=== PATIENT | male | born 1950 | race Two or more races ===

== ENCOUNTER 2024-07-13 17:51 | Inpatient (IN) | payer MEDICAID, SELFPAY ==
[2024-07-13 18:20] VITALS: BP 211/113; BP 212/85; PULSE 81; RESP 18; TEMP 37.2; O2SAT 95; BMI 28.7
--- NOTE | 2024-07-13 18:28 | XR_ITS ---
Examination: CT abdomen and pelvis without contrast. Coronal 3-D reconstructions. Sagittal 2-D reconstructions. Date and time of exam:July 13, 2024 1850 hrs. Indications: Right-sided abdominal pain and vomiting beginning 3 days ago CTDI: vol (mGy): 7.84 DLP: (mGycm): 413 Technique: Axial images of the abdomen have been obtained, 3 mm slice thickness Intravenous contrast material has not been administered. Low dose protocols were performed. One or more of the following dose reduction techniques were used; automated exposure control, adjustment of the mA and/or KV according to patient size, use of iterative reconstruction technique. Findings: Diffuse fatty infiltration throughout the liver Gallstones Gallbladder wall appears mildly thickened Pericholecystic inflammatory change and possible edema around the head of the pancreas No definite extrahepatic biliary tract dilatation Renal arterial calcifications, no hydronephrosis Pericecal inflammatory change with apparent inflammation also involving the terminal ileum No bowel obstruction Contracted urinary bladder No significant prostatomegaly Advanced disc narrowing L4-L5 Impression: Cholelithiasis, suspicious for cholecystitis Suspicious for pancreatitis, consider MRCP follow-up Significant inflammatory change about the right colon and terminal ileal segment Differential would include Crohn's disease Partial visualization of the appendix axial image 67 which does not appear enlarged, but the patient be clinically correlated
--- NOTE | 2024-07-13 18:29 | PD.EDRME ---
Rapid Medical Screening Exam E Arrival date/time: 07/13/24 17:51 73-year-old male with past medical history of hypertension not on medication presents emergency department complaining of diffuse abdominal pain with vomiting that is been ongoing for 3 days. Chief Complaint: Abdominal Pain Time Seen by Provider: 07/13/24 18:04 Vital signs: Vital Signs Temperature 98.9 F 07/13/24 18:20 Pulse Rate 81 07/13/24 18:20 Respiratory Rate 18 07/13/24 18:20 Blood Pressure 211/113 H 07/13/24 18:20 Pulse Oximetry (%) 95 07/13/24 18:20 Oxygen Delivery Method Room Air 07/13/24 18:20 Vital signs reviewed by provider: Yes
[2024-07-13 18:56] LABS: Basophils # (Auto) 0.1 Thou/mm3 (0.0-0.2); Basophils % (Auto) 0 % (0-2.5); Eosinophils # (Auto) 0.1 Thou/mm3 (0.0-0.5); Eosinophils % (Auto) 0 % (0-10); Hematocrit 46.4 % (41.0-53.0); Hemoglobin 17.2 g/dL (13.5-16.0); Immature Granulocytes % (Auto) 1 % (0-0); Immature Granulocytes Auto 0.21 Thou/mm3 (0.00-0.00); Lymphocytes # (Auto) 1.9 Thou/mm3 (1.0-4.8); Lymphocytes % (Auto) 8 % (10-50); Mean Corpuscular HGB Conc 37.1 g/dl (31.0-37.0); Mean Corpuscular Hemoglobin 29.6 pg (25.0-35.0); Mean Corpuscular Volume 80 fL (80-100); Monocytes % (Auto) 4 % (0-12); Neutrophils # (Auto) 20.8 Thou/mm3 (1.8-7.7); Neutrophils % (Auto) 86 % (37-80); Nucleated Red Blood Cell % 0 /100 WBC (0); Platelet Count 198 Thou/mm3 (140-440); RDW Standard Deviation 34.7 fL (35.1-43.9); Red Blood Count 5.82 Miln/mm3 (4.50-5.90)
[2024-07-13 19:21] VITALS: BP 192/96; PULSE 81
[2024-07-13] MEDS: hydrALAZINE HCL 25 MG TABLET PO (19:21)
[2024-07-13] MEDS: ONDANSETRON ODT 4 MG TABRAP PO (19:22)
[2024-07-13] MEDS: KETOROLAC INJ 60 MG/2 ML VIAL 30 MG IM (19:23)
[2024-07-13 19:27] LABS: Alanine Aminotransferase 74 U/L (10-49); Albumin, Serum 4.8 gm/dL (3.4-4.8); Albumin/Globulin Ratio 1.5 (1.2-2.2); Alkaline Phosphatase 90 U/L (46-116); Anion Gap 12 (7-16); Aspartate Amino Transferase 47 U/L (0-34); BUN/Creatinine Ratio 13 Ratio (12-20); Bilirubin,Total 3.8 mg/dL (0.3-1.2); Blood Urea Nitrogen 10 mg/dL (9-23); Calcium 9.5 mg/dL (8.3-10.6); Calcium (Corrected) 9.5 mg/dL (8.5-10.1); Carbon Dioxide 20.8 mMol/L (20.0-31.0); Chloride 97 mMol/L (98-107); Creatinine (Component) 0.8 mg/dL (0.6-1.3); Estimated Creatinine Clearance 73.9 mL/min (>60); Globulin 3.2 gm/dL (2.3-3.5); Glucose 266 mg/dL (74-106); Lipase 30 U/L (12-53); Osmolality,Calculated 268 (275-295); Potassium 3.6 mMol/L (3.4-5.1); Sodium 130 mMol/L (136-145); eGFR > 60 See Note
[2024-07-13 19:30] LABS: Lactate (Lactic Acid) 2.7 mMol/L (0.4-2.0)
[2024-07-13 20:36] LABS: Procalcitonin 0.53 ng/ml (0.0-0.49)
[2024-07-13 22:21] VITALS: BP 162/98; PULSE 79; RESP 17; TEMP 36.6; O2SAT 96
[2024-07-13 22:28] LABS: Reflex Lactate? Y
--- NOTE | 2024-07-13 22:40 | EDNOTE_ITS ---
ED Abdominal Pain RME/HPI General Chief Complaint: Abdominal Pain Stated complaint: R) ABD PAIN, VOMITING, UNABLE TO EAT X 3 DAYS Time seen by provider: 07/13/24 18:04 Arrival date/time: 07/13/24 17:51 RME / HPI RME / HPI narrative: 07/13/24 17:51 73-year-old male with past medical history of hypertension not on medication presents emergency department complaining of diffuse abdominal pain with vomiting that is been ongoing for [address] days[address] -------- Dr. Baxter?s Main ED Evaluation: 73yo male with a history of alcohol abuse presents to the ED for a chief complaint of epigastric and RUQ pain x yesterday. Patient's son states the patient started having abdominal pain yesterday, reporting it's been progressively getting worse, so he came in for evaluation. He currently rates his pain an 8 out of 10 in severity. He denies any fever, chills, vomiting or any other associated symptoms. Patient drinks alcohol daily. Patient states he experienced similar symptoms 15 years ago and was told he drinks alcohol too much. No known allergies. Related Data Allergies Allergy/AdvReac Type Severity Reaction Status Date / Time No Known Allergies Allergy Verified 07/13/24 17:54 Review of Systems Review of Systems Systems Reviewed: All systems reviewed, normal except as documented Past Medical History Past Medical History CARDIAC: Negative Congestive Heart Failure RESPIRATORY: Negative Chronic Obstructive Pulmonary Disease (COPD) GENITOURINARY: Negative Renal Disease ENDOCRINE: Negative Diabetes Mellitus Type 1 or Diabetes Mellitus Type 2 Social History SMOKING STATUS: Never smoker ED Exam Narrative Physical exam: GENERAL APPEARANCE: alert and oriented x 4, well-developed, well-nourished, no acute distress VITALS: All vitals were reviewed and the pulse ox is 96% on room air, which is normal according to my interpretation. HEENT: Normocephalic, atraumatic; pupils equal, round, reactive to light; EOMI; mucous membranes pink, moist; oropharynx clear NECK: Supple LUNGS: CTABL; no wheezes, no rales, no rhonchi HEART: Regular rate, regular rhythm; normal S1, S2; no murmurs ABDOMEN: non distended; normal BS; soft, mild RLQ tenderness, pfjxqklp-[id number] tenderness at the RUQ, voluntary guarding, positive Martinez sign, no rebound; no masses, no organomegaly, no hernia BACK: no CVA tenderness EXTREMITIES: atraumatic; no edema NEUROLOGIC: awake; alert and oriented x4; cranial nerves II-XII grossly intact; no focal sensory or motor deficits PSYCHIATRIC: appropriate mood and affect SKIN: warm, dry, normal color; no rashes Course Course Course Narrative: The patient was placed in ED observation care at 07/13/24 at 2255 hours. The patient was placed in ED observation care because of pending MRCP. The patients past medical history, social history, and family history were reviewed. 0600: Care signed out to Dr. Bartholomew (emergency physician). Past medical, surgical, social and family history reviewed. Vitals and home medications reviewed. Results and treatment plan discussed. They will assume the care of the patient at this time and will follow the patient, pending MRCP. At this time, observation has ended. Quality Measures none Orders Category Date Time Status Cylinder Press Feeder Q4H START 00 Care 07/13/24 22:53 Active Continuous Pulse Oximetry NOW Care 07/13/24 22:53 Completed MRI Screening NOW Care 07/14/24 03:[address] abdomen pelvis wo con Stat Exams 07/13/24 18:28 Completed MR MRCP Stat Exams 07/14/24 Ordered XR chest 1V portable Stat Exams 07/13/24 22:55 Completed Blood Culture (Lab) Stat Lab 07/13/24 20:01 Received CBC Stat Lab 07/13/24 18:34 Completed CMP [Comprehensive Metabolic Panel] Stat Lab 07/13/24 18:34 Completed Lactic Acid [Lactate (Lactic Acid)] Stat Lab 07/13/24 18:34 Completed Lactic Acid, 3 HR Stat Lab 07/13/24 22:54 Completed Lipase Stat Lab 07/13/24 18:34 Completed Procalcitonin Stat Lab 07/13/24 18:34 Completed Urinalysis, C/S if Indicated Stat Lab 07/13/24 23:33 Completed Urine Culture Stat Lab 07/13/24 23:33 Received Acetaminophen Ivpb [Ofirmev Inj] Med 07/13/24 22:55 Discontinued 1,000 mg in 100 ml IV X1 HYDROmorphone INJ [Dilaudid Inj] Med 07/13/24 23:00 Active 0.5 mg IVP PRN Ketorolac Inj [Toradol Inj] Med 07/13/24 18:28 Discontinued 30 mg IM X1 ONE Ondansetron Inj [Zofran Inj] Med 07/13/24 22:52 Discontinued 4 mg IV X1 ONE Ondansetron Odt [Zofran Odt] Med 07/13/24 18:28 Discontinued 4 mg PO X1 ONE Piper/Tazo Inj [Zosyn Inj] 4.5 gm Med 07/13/24 22:52 Discontinued Sodium Chloride 0.9% (Pop) [NS 0.9% mini bag] 100 ml IV X1 Sodium Chloride 0.9% 1000 ml [Ns] 1,000 ml Med 07/13/24 22:53 Discontinued IV 999 mls/hr hydrALAZINE HCL [Apresoline] Med 07/13/24 18:29 Discontinued 25 mg PO X1 ONE Vital Signs Vital signs: Vital Signs Temperature 98.9 F 07/13/24 18:20 Pulse Rate 81 07/13/24 18:20 Respiratory Rate 18 07/13/24 18:20 Blood Pressure 211/113 H 07/13/24 18:20 Pulse Oximetry (%) 95 07/13/24 18:20 Oxygen Delivery Method Room Air 07/13/24 18:20 Abdominal Pain MDM MDM Narrative MDM Narrative:: Scribe Attestation: 07/13/24 Merline Plascencia am scribing for and in the presence of Dr. Baxter. Patient data External records reviewed:: [facility] previous records (Per chart review, patient has no previous ED visits or admissions to this facility.) Clinical information provided by:: patient Social determinants that could affect healthcare access:: alcohol use Patient has the following chronic illnesses:: none How is presenting disease/condition affected by chronic disease/condition?: no chronic disease Evaluation data The following diagnostics were reviewed and interpreted by me:: lab results and radiology exam(s) Lab and/or radiology exams considered but not ordered:: none Interpretation Summary: WBC count is elevated at 24.0 with a left shift, Sodium is low at 130, Glucose is 266, Lactic Acid is elevated at 2.7, Total Bilirubin is elevated at 3.8, AST and ALT are elevated, Lipase is normal, Procalcitonin is slightly elevated at 0.53, according to my interpretation. [facility] Report Signed Patient: CADEN FERREIRA Med. Record#: [id number] Birthdate: 1950 Age/Sex: 73 / M Location: [facility] Attending Dr: Ordering Physician: [place] Bey (JOSH)Juan Date of Service: 07/13/24 Procedure(s): CT abdomen pelvis wo con Accession Number(s): [id number] cc: Ibrahima Mclean MD; NO PRIMARY/FAMILY,PHYSICIAN; India Bey ([employer]EARCH SCIENTIST),Juan MORENO~ Examination: CT abdomen and pelvis without contrast. Coronal 3-D reconstructions. Sagittal 2-D reconstructions. Date and time of exam:July 13, 2024 1850 hrs. Indications: Right-sided abdominal pain and vomiting beginning 3 days ago CTDI: vol (mGy): 7.84 DLP: (mGycm): 413 Technique: Axial images of the abdomen have been obtained, 3 mm slice thickness Intravenous contrast material has not been administered. Low dose protocols were performed. One or more of the following dose reduction techniques were used; automated exposure control, adjustment of the mA and/or KV according to patient size, use of iterative reconstruction technique. Findings: Diffuse fatty infiltration throughout the liver Gallstones Gallbladder wall appears mildly thickened Pericholecystic inflammatory change and possible edema around the head of the pancreas No definite extrahepatic biliary tract dilatation Renal arterial calcifications, no hydronephrosis Pericecal inflammatory change with apparent inflammation also involving the terminal ileum No bowel obstruction Contracted urinary bladder No significant prostatomegaly Advanced disc narrowing L4-L5 Impression: Cholelithiasis, suspicious for cholecystitis Suspicious for pancreatitis, consider MRCP follow-up Significant inflammatory change about the right colon and terminal ileal segment Differential would include Crohn's disease Partial visualization of the appendix axial image 67 which does not appear enlarged, but the patient be clinically correlated Dictated By: Ibrahima Mclean MD Signed By: <Electronically signed by Ibrahima Mclean MD in OV> 07/13/24 193 Medications / Prescriptions Medications or Prescriptions considered but not ordered:: none Medication administrations:: Medication Administration History Hydromorphone HCl (Hydromorphone Inj 2 Mg/Ml Vial) 0.5 mg IVP PRN BRIAN Stop: 07/18/24 23:01 Discontinued Medications Hydralazine HCl (Hydralazine Hcl 25 Mg Tablet) 25 mg PO X1 ONE Stop: 07/13/24 18:30 Last Admin: 07/13/24 19:21 Dose: 25 mg Documented By: MC Piperacillin Sod/Tazobactam (Sod 4.5 gm/ Sodium Chloride) 100 mls @ 200 mls/hr IV X1 ONE Stop: 07/13/24 23:21 Last Infusion: 07/14/24 00:10 Dose: Infused Documented By: Admin: 07/13/24 23:40 Dose: 200 mls/hr Documented By: CCT Sodium Chloride (Ns) 1,000 mls @ 999 mls/hr IV .Q1H1M ONE Stop: 07/13/24 23:53 Last Infusion: 07/14/24 00:40 Dose: Infused Documented By: Admin: 07/13/24 23:41 Dose: 999 mls/hr Documented By: CCT Acetaminophen (Ofirmev Inj) 1,000 mg in 100 mls @ 250 mls/hr IV X1 ONE Stop: 07/13/24 23:18 Last Infusion: 07/14/24 00:16 Dose: Infused Documented By: Admin: 07/13/24 23:28 Dose: 250 mls/hr Documented By: CCT Ketorolac Tromethamine (Ketorolac Inj 60 Mg/2 Ml Vial) 30 mg IM X1 ONE Stop: 07/13/24 18:29 Last Admin: 07/13/24 19:23 Dose: 30 mg Documented By: MC Ondansetron HCl (Ondansetron Odt 4 Mg Tabrap) 4 mg PO X1 ONE; Protocol Stop: 07/13/24 18:29 Last Admin: 07/13/24 19:22 Dose: 4 mg Documented By: MC Ondansetron HCl (Ondansetron Inj 2 Mg/Ml Inj 2 Ml) 4 mg IV X1 ONE; Protocol Stop: 07/13/24 22:53 Last Admin: 07/14/24 00:18 Dose: Not Given Documented By: CCT Non-Admin Reason: Discontinued see above Consultations Consultation(s) initiated? (list below): No Diagnosis Differential diagnosis abdominal pain: pancreatitis and other (cholecystitis, cholelithiasis, choledocolithiasis, gallstone pancreatitis, gallstone ileus) Most likely diagnosis given after review of the tests above:: final dx pending at sign out Admission Indicated Admission indicated?: not indicated Admission Request Was there a request for admission?: No Disposition Plan Disposition Plan: other (specify) (Signed out to Dr. Bartholomew at 0600 pending [facility].) Discharge Plan Plan Disposition Comment: Stable at signout. Prescriptions/Referrals Referrals: No Primary/Family,Physician [Primary Care Provider] - In 1 week Problem List Clinical Impression: Abdominal pain, Total bilirubin, elevated Patient/Caregiver Discharge Instructions Print Language: Jordanian Stand Alone Forms: [facility] Award Info., Patient Portal Info Letter
[2024-07-13 22:53] VITALS: PULSE 76
--- NOTE | 2024-07-13 22:55 | XR_ITS ---
Examination: AP chest single view Technique one AP portable upright chest single view Exam date and time: July 13, 2024 1106 hrs. Indications: Abdominal pain vomiting and fever beginning 3 days ago with coughing Findings: Poor definition lateral portion left hemidiaphragm with mild opacity lateral left base Normal heart size Right lung clear No pulmonary edema Moderate osteopenia Impression: Suspicious for early pneumonia lateral left base
[2024-07-13 23:04] LABS: Lactic Acid, 3 HR 1.7 mMol/L (0.4-2.0)
--- NOTE | 2024-07-13 23:20 | PC.NURSE ---
Discussed plan of care with pt, son at bedside to interpret. Aware he needs MRCP, however, MRI not available until morning. Pt verbalized understanding of plan of care.
[2024-07-13] MEDS: ACETAMINOPHEN IVPB 1,000 MG/100 ML VIAL 250 MG IV (23:28)
[2024-07-13] MEDS: PIPER/TAZO INJ 4.5 GM in SODIUM CHLORIDE 0.9% (POP) 100 ML IV (23:40)
[2024-07-13] MEDS: SODIUM CHLORIDE 0.9% 1000 ML 1,000 ML 999 ML IV (23:41)
[2024-07-13 23:42] LABS: Collection Type, Urine Clean Catch
[2024-07-13 23:52] LABS: Bacteria,Urine 1+; Bilirubin,Urine Negative (Negative); Blood,Urine Negative (Negative); Clarity,Urine Turbid (Clear/Hazy); Color,Urine Orange (Lt Yel-Yel); Culture Indicated,Urine Yes; Glucose, Urine 4+ (Negative); Hyaline Casts,Urine 1 /hpf (0-1); Ketones,Urine Negative (Negative); Leukocyte Esterase,Urine Negative (Negative); Nitrite,Urine Negative (Negative); PH,Urine 5.5 (5.0-7.0); Protein,Urine 1+ (Neg - Trace); RBC,Urine 6 /hpf (0-3); Specific Gravity,Urine 1.021 (1.001-1.035); Squamous Epithelial Cell,Urine < 1 /hpf (0-5); Urobilinogen,Urine Negative mg/dL (0.0-1.0); WBC,Urine 3 /hpf (0-5)
[2024-07-14] VITALS (21 sets, daily range): BP systolic 132–176; BP diastolic 68–93; PULSE 64–81; RESP 12–20; TEMP 36.3–37.1; O2SAT 93–98; BMI 28.7
--- NOTE | 2024-07-14 | XR_ITS ---
MRI abdomen, without contrast. MRCP Date and time of exam: July 14, 2024 0722 hrs. Indications: Alcohol abuse history, upper abdominal pain beginning 3 days ago, cholecystitis, suspicious for pancreatitis, inflammatory change about the right colon and terminal ileum on CT abdomen pelvis July 13, 2024 1850 hrs. Technique: Multiple axial and coronal images of the abdomen have been obtained with the Siemens 1.5T MRI scanner. Images obtained included T1 weighted transverse images, T2-weighted transverse images, T2-weighted transverse images fat-suppressed, T2 weighted haste fat suppressed transverse images, T1 weighted images, in and out of phase images, T2-weighted coronal images, breath hold, T2 weighted haze coronal images as well as T2 weighted coronal thick slab images, MRCP. Findings: Liver irregular in contour Distended gallbladder with gallbladder wall edema and pericholecystic edema Common hepatic duct common bile duct 3 to 4 mm no stones Edema around the pancreas, no dilated pancreatic duct Spleen is not enlarged Edema around the right colon and terminal ileum Trace free fluid throughout the abdomen Impression: Cirrhosis versus primary hepatocellular disease Acute cholecystitis, no common hepatic or common bile duct stones Acute pancreatitis Edema about the right colon and terminal ileum, clinical correlation advised
--- NOTE | 2024-07-14 04:30 | PC.NURSE ---
Pt resting with eyes closed. Respirations are even and unlabored. No s/s of acute distress noted. Son at bedside. Call light within reach. Plan of care ongoing.
--- NOTE | 2024-07-14 07:19 | PD.EDADDENDU ---
Emergency Room Addendum <Myrtle Chun - Last Filed: 07/14/24 08:36> Addendum Narrative: 0600: Care assumed from Dr. Baxter, the previous shift emergency physician. Past medical, surgical, social and family history reviewed. Vitals and home medications reviewed. I will assume the care of the patient at this time, pending MRCP and final disposition. Please refer to the emergency department record for history and examination from initial visit.? Physical exam by me shows patient under no acute distress at this time. <Ruddy Bartholomew MD - Last Filed: 07/14/24 08:36> Addendum Narrative: I took over the care from Dr. Baxter at 6 AM on 07/14/2024, see his notes for complete H&P and ED course. I reviewed all diagnostic test results. At this point, diagnoses include acute cholecystitis. I discussed the case with our surgeon on-call, Dr. Metcalf, and our hospitalist. About the presentation and exam and diagnostics and treatments here. And need of further care in the hospital. Will accept the patient. Ruddy Bartholomew MD
[2024-07-14] MEDS: HYDROmorphone INJ 2 MG/ML VIAL 0.5 MG IVP ×2 (08:31→10:11)
--- NOTE | 2024-07-14 09:40 | PC.SS ---
Initial assessment: this is 73 year old male who presents from home. Patient is Hebrew speaking. Patient appeared alert and oriented to person, place and situation. Patient confirmed demographic information. Patient lives at home with his son, Marisa Rodarte. Patient assigned his son Marisa as his emergency contact. Patient reports being independent with ADL's. Patient denies the use of DME in the home. Patient informs he does not follow up with primary care and has not been seen medically in years. Patient would like to return home upon discharge. Patient's son able to assist with transportation needs. Community resources provided at this time. D/c plan: home Next of kin: son, Marisa Rodarte
[2024-07-14] MEDS: SODIUM CHLORIDE 0.9% 1000 ML 1,000 ML 100 ML IV ×2 (10:00→20:44)
[2024-07-14] MEDS: PIPER/TAZO INJ 3.375 GM in SODIUM CHLORIDE 0.9% (Popper) 50 ML IV ×2 (10:01→22:03)
[2024-07-14] MEDS: ONDANSETRON INJ 2 MG/ML INJ 2 ML 4 MG IV (10:10)
--- NOTE | 2024-07-14 10:15 | PC.NURSE ---
Received verbal order from Dr. Sanchez for 0.5mg Dilaudid IV for pain control.
[2024-07-14 10:26] LABS: Basophils # (Auto) 0.1 Thou/mm3 (0.0-0.2); Basophils % (Auto) 0 % (0-2.5); Eosinophils % (Auto) 0 % (0-10); Hematocrit 45.8 % (41.0-53.0); Hemoglobin 16.5 g/dL (13.5-16.0); Immature Granulocytes % (Auto) 1 % (0-0); Lymphocytes # (Auto) 1.2 Thou/mm3 (1.0-4.8); Lymphocytes % (Auto) 6 % (10-50); Mean Corpuscular Hemoglobin 29.2 pg (25.0-35.0); Mean Corpuscular Volume 81 fL (80-100); Monocytes # (Auto) 0.8 Thou/mm3 (0.0-0.8); Monocytes % (Auto) 4 % (0-12); Neutrophils # (Auto) 16.1 Thou/mm3 (1.8-7.7); Neutrophils % (Auto) 88 % (37-80); Nucleated Red Blood Cell % 0 /100 WBC (0); Platelet Count 162 Thou/mm3 (140-440); RDW Standard Deviation 36.9 fL (35.1-43.9); Red Blood Count 5.65 Miln/mm3 (4.50-5.90); White Blood Count 18.3 Thou/mm3 (3.8-10.6)
--- NOTE | 2024-07-14 11:22 | ESCONSULT_ITS ---
HPI Consult details Consult date: 07/14/24 Reason for consultation narrative: Abdominal pain with nausea and vomit History of present illness: 73-year-old male without past medical history who has not seen a physician for many years presented to the emergency department with acute onset of abdominal pain. His pain started 3 days ago in the epigastric and right upper quadrant. His pain has been radiating to his back and was associated with nausea and vomiting. He denies fever, chills, jaundice or discoloration of urine or stool. He denies having similar symptoms in the past. He has not been able to eat or tolerate any food. Review of Systems Constitutional Constitutional: Denies chills and Denies fever(s) Cardiovascular Cardiovascular: Denies chest pain Respiratory Respiratory: Denies cough Gastrointestinal Gastrointestinal: Reports abdominal pain, Reports nausea and Reports vomiting Hematologic/Lymphatic Hematologic/Lymphatic: Denies easy bleeding and Denies easy bruising Past Medical History Surgical History OTHER SURGICAL HX: No surgeries in the past Social History SMOKING STATUS: Former smoker SUBSTANCE USE: does not use ALCOHOL: Current Meds Home Medications and Allergies Allergies Allergy/AdvReac Type Severity Reaction Status Date / Time No Known Allergies Allergy Verified 07/13/24 17:54 Exam Vital Signs Temp Pulse Resp BP Pulse Ox O2 Del Method 98.4 F 77 17 175/89 H 95 Room Air 07/14/24 10:14 07/14/24 10:14 07/14/24 10:14 07/14/24 10:14 07/14/24 10:14 07/14/24 10:14 Constitutional Constitutional: no acute distress Routine Abdominal Exam Abdominal: Present soft, normoactive bowel sounds and tenderness (Epigastric and right upper quadrant tenderness to palpation with guarding, positive Martinez sign); Absent distended Results Results: Laboratory Laboratory results: results reviewed Results: Imaging Imaging narrative: CT scan of abdomen and pelvis, MRCP images reviewed, radiologist interpretation noted Assessment & Plan Problem List (1) Calculus of gallbladder with acute cholecystitis without obstruction: Status: Acute Plan Will take patient to the operating room for laparoscopic possible open cholecystectomy. Risks include but not limited to infection, bleeding, injury to bowel, liver, stomach, bile duct, retained stone, bile leak, abdominal sepsis and or abdominal abscess, need for further procedure and or operation, pneumonia and blood clot discussed with the patient via director life sales and his son. Benefits and alternatives explained to them, all their questions answered, they agreed and consented to proceed with the operation.
--- NOTE | 2024-07-14 11:42 | ESHP_ITS ---
<Statement entered by Luke Belcher MD - 07/14/24 15:27> Patient was seen and examined at the bedside. Patient came with right lower quadrant pain and was found to have cholecystitis on CT abdominal imaging. Chest x-ray showed left base pneumonia. Patient received 1 L bolus of fluids and Zosyn in the ED. CT imaging was also significant for cirrhosis and acute pancreatitis with edema on the right colon. Surgeon, Dr Metcalf was consulted who performed surgery today. Will continue with IV fluid resuscitation and IV antibiotic therapy. White count was elevated with hemoconcentration with hemoglobin 17.2. Lactic acid was within normal limits. Kidney functions remained stable. Blood sugars were elevated therefore insulin sliding scale was added. Will follow-up on surgery recommendations. Adequate pain management was added. All labs and orders were reviewed. I saw and examined the patient, and I agree with current management stated by Dr Zara MD,PGY1. Plan of care was discussed with the attending physician and resident physician. Disclaimer: Despite multiple revisions, due to the dictation software being used, the document bellow may not be free of grammatical errors including phonetic/typographic errors. However, this does not deter from our commitment to providing health care in the patient's best interest in mind. Dr. Simi MD, PGY 2 Documentation for date of: 07/14/24 HPI History of Present Illness History of present illness: Clemente Rodarte is a 73-year-old male with a past medical history of hypertension (not on medications) who presented to the ED on 07/13 with abdominal pain. Pain started on Saturday and patient describes it as constant, 8/10 in severity, and in right upper quadrant. Also endorses epigastric pain but it does not radiate to the back. Associated nausea and nonbloody emesis with decreased p.o. intake but denies fever, chills, or change in bowel habits. In ED, BP 211/113, afebrile, and other vital signs stable. Labs significant for leukocytosis of 24, normal platelets, sodium 130, glucose 266, lactic acid 2.7 (down trended to 1.7), AST 47, ALT 74, T. bili 3.8, normal ALP, lipase normal, Pro-Mike 0.53. On CT A/P, cholelithiasis (suspicious for cholecystitis), possible pancreatitis, significant inflammatory change in right colon and terminal ileus. MRCP showed cirrhosis, acute cholecystitis (no stones in common hepatic or common bile duct), acute pancreatitis, edema in right colon and terminal ileum. CXR showed possible early pneumonia left lung base. Admitted for acute cholecystitis and general surgery consulted who will take patient to the OR. PMHx: Hypertension Medications: None Allergies: None SHx: Drinks 6-8 beers per day, no smoking or illicit drug use PSHx: No previous surgeries Review of Systems Review of Systems Systems Reviewed: All systems reviewed, normal except as documented Exam Vital Signs Temp Pulse Resp BP Pulse Ox O2 Del Method 98.4 F 77 17 175/89 H 95 Room Air 07/14/24 10:14 07/14/24 10:14 07/14/24 10:14 07/14/24 10:14 07/14/24 10:14 07/14/24 10:14 Narrative Exam General: AOx3, no acute distress, able to speak full sentences HEENT: NC/AT, mucous membranes moist, bilateral sclera anicteric Cardiovascular: regular rate and rhythm, S1/S2 present, no murmurs appreciated Pulmonary: clear to auscultation bilaterally, no rales/rhonchi/wheezes Abdominal: Tenderness in epigastrium and right upper quadrant, soft, non- distended Musculoskeletal: normal ROM, no peripheral edema Skin: warm and dry, intact, no rashes Neuro: CN II-XII intact, no focal deficits Results: Labs 07/15/24 04:48 07/15/24 04:48 Labs: Short CBC 07/13/24 07/14/24 Range/Units 18:34 09:57 WBC 24.0 H 18.3 H D (3.8-10.6) Thou/mm3 Hgb 17.2 H 16.5 H (13.5-16.0) g/dL Hct 46.4 45.8 (41.0-53.0) % Plt Count 198 162 D (140-440) Thou/mm3 BMP 07/13/24 18:34 Sodium 130 L Potassium 3.6 Chloride 97 L Carbon Dioxide 20.8 BUN 10 Creatinine 0.8 Glucose 266 H Calcium 9.5 Liver Function 07/13/24 Range/Units 18:34 Total Bilirubin 3.8 H (0.3-1.2) mg/dL AST 47 H (0-34) U/L ALT 74 H (10-49) U/L Alkaline Phosphatase 90 (46-116) U/L Albumin 4.8 (3.4-4.8) gm/dL Urine 07/13/24 Range/Units 23:33 Urine Color Ada A (Lt Yel-Yel) Urine Clarity Turbid A (Clear/Hazy) Urine pH 5.5 (5.0-7.0) Ur Specific [place] 1.021 (1.001-1.035) Urine Protein 1+ A (Neg - Trace) Urine Glucose (UA) 4+ A (Negative) Quality Measures Quality Measures none Advance care planning discussed with:: other Medications Home Medications and Allergies Allergies Allergy/AdvReac Type Severity Reaction Status Date / Time No Known Allergies Allergy Verified 07/13/24 17:54 Visit Medications Acetaminophen (Acetaminophen 325 Mg Tablet) 650 mg PO Q6H PRN PRN Reason: PAIN OR FEVER > 100.4 Stop: 08/13/24 09:27 Dextrose (Dextrose 50%-Water Inj 50 Ml Syringe) 25 ml IV Q15MIN PRN PRN Reason: BG 50-70 responsive npo pt Stop: 08/13/24 10:53 Dextrose (Dextrose 50%-Water Inj 50 Ml Syringe) 50 ml IV Q15MIN PRN PRN Reason: BG <50 OR BG <70 & pt unresponsive Stop: 08/13/24 10:53 Fentanyl Citrate (Fentanyl Cit Inj 50 Mcg/Ml Amp 2ml) 25 mcg IV Q5M PRN PRN Reason: PAIN SCALE 1-3 (mild Stop: 07/14/24 13:08 Glucagon (Glucagon Inj 1 Mg Vial) 1 mg IM Q15MIN PRN PRN Reason: BG <70, and no IV access Heparin Sodium (Porcine) (Heparin Sod Inj 5000 Unit/Ml Vial) 5,000 unit SC Q12HR BRIAN Stop: 07/28/24 20:59 Hydromorphone HCl (Hydromorphone Inj 2 Mg/Ml Vial) 0.5 mg IVP Q4H PRN PRN Reason: Pain Hydromorphone HCl (Hydromorphone Inj 2 Mg/Ml Vial) 0.4 mg IV Q5M PRN PRN Reason: PAIN SCALE 7-10 (Severe Stop: 07/14/24 13:09 Sodium Chloride (Ns) 1,000 mls @ 100 mls/hr IV .Q10H [facility] Stop: 08/13/24 09:29 Last Admin: 07/14/24 10:00 Dose: 100 mls/hr Piperacillin Sod/Tazobactam (Sod 3.375 gm/ Sodium Chloride) 50 mls @ 12.5 mls/hr IV Q8HR [facility]; Protocol Stop: 07/21/24 13:59 Acetaminophen (Ofirmev Inj) 1,000 mg in 100 mls @ 250 mls/hr IV Q6H BRIAN Stop: 07/15/24 05:32 Insulin Human Lispro (Insulin Lispro (Admelog) 1 Unit/0.01 Ml Unit) 0 unit SC Q6HR [facility]; Protocol Stop: 08/13/24 10:59 Morphine Sulfate (Morphine Sulf Inj 10 Mg/Ml Vial) 3 mg IV Q5M PRN PRN Reason: PAIN SCALE 4-6 (Moderate Stop: 07/14/24 13:09 Ondansetron HCl (Ondansetron Inj 2 Mg/Ml Inj 2 Ml) 4 mg IV Q6H PRN; Protocol PRN Reason: NAUSEA OR VOMITING Stop: 08/13/24 09:27 Last Admin: 07/14/24 10:10 Dose: 4 mg Pantoprazole Sodium (Pantoprazole Inj 40 Mg Vial) 40 mg IVP QDAY [facility] Stop: 08/14/24 08:59 Discontinued Medications Hydralazine HCl (Hydralazine Hcl 25 Mg Tablet) 25 mg PO X1 ONE Stop: 07/13/24 18:30 Last Admin: 07/13/24 19:21 Dose: 25 mg Hydromorphone HCl (Hydromorphone Inj 2 Mg/Ml Vial) 0.5 mg IVP PRN [facility] Stop: 07/18/24 23:01 Last Admin: 07/14/24 08:31 Dose: 0.5 mg Hydromorphone HCl (Hydromorphone Inj 2 Mg/Ml Vial) 0.5 mg IVP X1 ONE Stop: 07/14/24 10:04 Last Admin: 07/14/24 10:11 Dose: 0.5 mg Piperacillin Sod/Tazobactam (Sod 4.5 gm/ Sodium Chloride) 100 mls @ 200 mls/hr IV X1 ONE Stop: 07/13/24 23:21 Last Infusion: 07/14/24 00:10 Dose: Infused Sodium Chloride (Ns) 1,000 mls @ 999 mls/hr IV .Q1H1M ONE Stop: 07/13/24 23:53 Last Infusion: 07/14/24 00:40 Dose: Infused Acetaminophen (Ofirmev Inj) 1,000 mg in 100 mls @ 250 mls/hr IV X1 ONE Stop: 07/13/24 23:18 Last Infusion: 07/14/24 00:16 Dose: Infused Piperacillin Sod/Tazobactam (Sod 3.375 gm/ Sodium Chloride) 50 mls @ 100 mls/hr IV X1 ONE Stop: 07/14/24 09:05 Last Admin: 07/14/24 10:01 Dose: 100 mls/hr Ketorolac Tromethamine (Ketorolac Inj 60 Mg/2 Ml Vial) 30 mg IM X1 ONE Stop: 07/13/24 18:29 Last Admin: 07/13/24 19:23 Dose: 30 mg Ondansetron HCl (Ondansetron Odt 4 Mg Tabrap) 4 mg PO X1 ONE; Protocol Stop: 07/13/24 18:29 Last Admin: 07/13/24 19:22 Dose: 4 mg Ondansetron HCl (Ondansetron Inj 2 Mg/Ml Inj 2 Ml) 4 mg IV X1 ONE; Protocol Stop: 07/13/24 22:53 Last Admin: 07/14/24 00:18 Dose: Not Given Ondansetron HCl (Ondansetron Inj 2 Mg/Ml Inj 2 Ml) 4 mg IV X1 ONE Stop: 07/14/24 11:09 Assessment & Plan Plan Clemente Rodarte is a 73-year-old male with a past medical history of hypertension (not on medications) who presented to the ED on 07/13 with abdominal pain. Pain started on Saturday and patient describes it as constant, 8/10 in severity, and in right upper quadrant. Also endorses epigastric pain but it does not radiate to the back. Associated nausea and nonbloody emesis with decreased p.o. intake but denies fever, chills, or change in bowel habits. Imaging showed acute cholecystitis and admitted for management of same and general surgery consulted who will take patient to the OR. #Acute calculus cholecystitis #Cholelithiasis #Leukocytosis Presents with right upper quadrant and epigastric pain for 3 days. No fever or chills but does endorse nausea vomiting. Vital signs stable with leukocytosis, thus not septic. CT A/P showed concerns for cholecystitis that was confirmed on MRCP. Imaging also showed signs of pancreatitis, however lipase negative and pain does not radiate to back. Total bilirubin initially 3.8 and up trended to 4.0, ALP WNL, AST and ALT mildly elevated at 59 and 76, respectively. ? General Surgery consulted, plans to take to OR for laparoscopic versus possible open cholecystectomy ? N.p.o. ? Zosyn 3.375 g IV every 8 hours ? NS at 100 cc/h ? Zofran for nausea ? Dilaudid 0.5 mg IV every 4 hours as needed for pain ? Follow-up blood cultures #Alcohol dependence Endorses drinking 6-8 beers per day and last drink was on Saturday. No tremors on exam, denies anxiety, agitation, or headaches and alert and orientated x 3. ? Referral to social services director ? Loop Drier Operator referral placed ? CIWA protocol ? Multivitamins #Hypertensive urgency #Primary hypertension Not prescribed any home antihypertensives. ? As needed hydralazine ? Will consider starting antihypertensives after procedure and no longer n.p.o. #? Inflammatory bowel disease, Crohn's versus UC Denies diarrhea or constipation or bloody bowel movements, arthritic pain, eye pain/uveitis, oral lesions, or skin rashes. CT showed inflammatory changes of right colon and terminal ileum. ? Follow-up fecal calprotectin Hospital management: Disposition: admitted for cholecystitis and plans for cholecystectomy Fluids: NS at 100 cc/h Diet: N.p.o., pending procedure Lines: PIV DVT prophylaxis: Heparin SC twice daily GI prophylaxis: Pantoprazole CODE STATUS: full code ----- Plan discussed with attending physician Dr. Nancie heart senior resident physician Dr. Simi Zuñiga MD PGY-1 Internal Medicine Attending Provider Attestation/Addendum I, Luzma Miguel DO, attest that I was physically present for the [place] portions of the service and evaluated the patient with the resident and I reviewed and discussed the case with the resident and agree with the resident's findings and plans of care as documented above Patient is a 73-year-old male with past medical history of alcohol abuse and hypertension who presented to the ED due to worsening abdominal pain for the past 3 days. Son is at bedside. Patient states that he has been unable to tolerate any p.o. intake due to worsening pain, worse in his right upper quadrant. Son states that he has been estranged from his father for the past 24 years and concerned as his father had reached out to him due to his pain and discomfort. CT abdomen pelvis was done showing evidence of acute Merna cystitis on acute pancreatitis. MRCP was also done due to mildly elevated bilirubin of 3.8 and showed evidence of cirrhosis, acute cholecystitis and pancreatitis. There is also edema in the right colon and terminal ileum. Will start patient on IV fluids and pain control as needed. Surgeon was consulted from ED and admitted to [facility]. Patient underwent open cholecystectomy. A AKUA drain was noted with some sanguinous output. Dressing across right upper quadrant was clean dry and intact. Patient is some pain on palpation. Patient was found to have a gangrenous gallbladder with multiple stones. Will continue with IV Zosyn at this time and pain control. Will provide patient with resources for substance rehabilitation by social services director and evaluation by dietitian as requested by the son. Patient is noted to have hyperglycemia of 301 on presentation. Will obtain A1c. Suspect that patient may have underlying hypertension, but has not seen a doctor for 15 years. Will start patient on lisinopril for blood pressure control. Will also place patient on CIWA protocol due to concern for alcohol withdrawal. Patient reports consumption of alcohol daily, last drink on Saturday.
[2024-07-14 12:06] LABS: Alanine Aminotransferase 76 U/L (10-49); Albumin, Serum 4.2 gm/dL (3.4-4.8); Albumin/Globulin Ratio 1.4 (1.2-2.2); Alkaline Phosphatase 80 U/L (46-116); Anion Gap 10 (7-16); Aspartate Amino Transferase 59 U/L (0-34); BUN/Creatinine Ratio 20 Ratio (12-20); Blood Urea Nitrogen 14 mg/dL (9-23); Calcium 9.2 mg/dL (8.3-10.6); Calcium (Corrected) 9.2 mg/dL (8.5-10.1); Carbon Dioxide 23.1 mMol/L (20.0-31.0); Cardiac Risk Estimate 2.6 RATIO (4.0-6.7); Chloride 101 mMol/L (98-107); Cholesterol 153 mg/dL (132-200); Creatinine (Component) 0.7 mg/dL (0.6-1.3); Estimated Creatinine Clearance 84.5 mL/min (>60); Globulin 2.9 gm/dL (2.3-3.5); Glucose 218 mg/dL (74-106); HDL Cholesterol 60 mg/dL (40-60); LDL Cholesterol,Calculated 76 mg/dL (0-130); Osmolality,Calculated 275 (275-295); Potassium 3.2 mMol/L (3.4-5.1); Sodium 134 mMol/L (136-145); Total Protein 7.1 gm/dL (5.7-8.2); Triglycerides 84 mg/dL (30-150); eGFR > 60 See Note
--- NOTE | 2024-07-14 13:00 | SUR.PHASEI ---
1300 Patient arrived to recovery resting comfortably in [facility], drowsy and able to arouse with verbal prompting, on oxygen 6L via oxy mask, breathing unlabored, vital signs stable, denies pain, dressing intact to abdomen; maicol, gauze, medipore tape x2 ports, no bleeding noted, AKUA drain 19F in place with sutures, drain sponge, gauze, medipore tape with serosanguineous fluid in drain, lung sounds clear upon auscultation, bilateral radial pulses present when palpated, report received from Tor HUDSON and Dr. Cummings.
--- NOTE | 2024-07-14 13:01 | ESOP_ITS ---
Date of Procedure 07/14/24 Pre Op Diagnosis Cholelithiasis with acute cholecystitis Post Op Diagnosis Cholelithiasis with gangrenous cholecystitis Procedure Attempted laparoscopic, converted to open cholecystectomy Findings Gangrenous gallbladder with multiple gallstones and significant pericholecystic inflammation Procedure Description Patient was brought into the operating room in supine position. After administration of general endotracheal anesthesia abdomen was prepped and draped in standard surgical manner. A Veress needle was inserted through the umbilicus and pneumoperitoneum was obtained up to 15 mmHg. The Veress needle was then removed, a 5 mm infraumbilical incision was made and the 5mm trocar was inserted. Laparoscopic camera was placed. Under direct visualization a laparoscopic camera a 10 mm trocar was placed in subxiphoid and two 5 mm trocars placed in right upper quadrant. The right upper quadrant was inspected, there was significant amount of inflammatory reaction noted. The omentum was adherent in the inferior surface of the gallbladder and liver. I was unable to free the omental adhesions from the inferior surface of the liver and gallbladder. The gallbladder appeared to be gangrenous in appearance. At this point I elected to convert the procedure to open. Subxiphoid incision was connected to the medial right upper quadrant incision by making a subcostal incision. Instruments and trocars removed and pneumoperitoneum was evacuated. Dissection was deepened into soft tissue and anterior abdominal fascia was divided. The rectus muscle was excised. Posterior abdominal fascia and peritoneum were opened. A Bookwalter retractor was placed for adequate exposure. Patient was noted to waldron ve significant amount of inflammatory reaction and adhesions of omentum into the inferior aspect of gallbladder and the liver. Adhesions were bluntly dissected and divided and the omentum was retracted caudally. The gallbladder was gangrenous. The gallbladder was from the liver and top-down fashion. Upon reaching the infundibulum of the gallbladder the junction of gallbladder and cystic duct was clearly visualized. The cystic duct was ligated with 0 silk tie. Cystic artery was identified and divided between 2 clips proximally and 1 distally. The gallbladder was then removed. The area was copiously and thoroughly washed and irrigated, all the fluids were suctioned and the suction fluid returned clear. Hemostasis was adequate and satisfactory. There was no evidence of bile leak or bleeding. A 19 [place] round Handy-Phan drain was placed at the gallbladder fossa and the drain was brought out of the lateral 5 mm trocar site incision. The drain was secured with 2-0 nylon suture. Peritoneum and posterior abdominal fascia were closed with running 0 PDS. The wound was copiously and thoroughly washed and irrigated. Anterior abdominal fascia was closed with running 0 PDS and the incisions were closed with maicol. Appropriate sterile dressings applied. Instruments, needles and sponge counts were all reported to be correct X2. Patient tolerated the procedure well, was extubated, breathing spontaneously and without difficulty and was transferred to postanesthesia care in stable condition. Anesthesia GETA and local Drains AKUA drain x 1 Pathology / specimen Other (Gallbladder and contents) Estimated Blood Loss 50 Condition Stable Disposition PACU Surgeon Aldair Metcalf MD Surgical Staff Operation Date: 07/14/24 11:45 Case Staff Anesthesiologist: Keegan Cummings RN First Assistant: Zhanna De
--- NOTE | 2024-07-14 13:15 | SUR.PHASEI ---
1300 Covid antigen in-house completed 1315 Results to Covid antigen [id number]
--- NOTE | 2024-07-14 14:10 | SUR.PHASEI ---
1402 Report given to Verito HUDSON, patient meets discharge criteria from recovery, awake and talking with staff, on oxygen 3L via oxy mask, breathing unlabored, vital signs stable, patient states he has a little pain, unable to rate, declines pain medication stating, I'm good , dressing intact; no bleeding noted, AKUA drain in place with serosanguineous fluid present, denies nausea. 1405 Patients son at bedside with patient. 1410 Patient transported via rney to room 350 without incident, BOOM SUPERVISOR arrived to assist with transferring patient from rney to bed, patient resting comfortably in bed with call light in reach and his son at bedside when this field underwriter left patients room.
[2024-07-14] MEDS: ACETAMINOPHEN IVPB 1,000 MG/100 ML VIAL 250 MG IV ×2 (15:39→20:52)
[2024-07-14] MEDS: INSULIN LISPRO (AdmeLOG) 1 UNIT/0.01 ML UNIT SC ×2 (16:01→19:20)
[2024-07-14] MEDS: hydrALAZINE INJ 20 MG/ML VIAL 10 MG IV (16:18)
--- NOTE | 2024-07-14 18:55 | PC.NURSE ---
checked patient blood sugar is 449, ordered glucose lab draw and notified Dr. Randall. states he will put in orders for sliding scale.
[2024-07-14 19:33] LABS: Glucose 456 mg/dL (74-106)
[2024-07-14] MEDS: INSULIN GLARGINE (Lantus) 5 UNIT/0.05 ML (PER 5 UNITS) 22 UNIT SC (20:35)
[2024-07-14] MEDS: DOCUSATE SOD 100 MG CAPSULE PO (20:46)
[2024-07-14] MEDS: FOLIC ACID 1 MG TABLET PO (20:47)
[2024-07-14] MEDS: THIAMINE 100 MG TABLET PO (20:47)
[2024-07-14] MEDS: POTASSIUM CHL 10 mEq IVPB 10 MEQ/100 ML BAG 100 MEQ IV ×3 (20:47→22:59)
[2024-07-14 21:13] LABS: Carbon Dioxide 18.4 mMol/L (20.0-31.0); Chloride 102 mMol/L (98-107); Potassium 3.8 mMol/L (3.4-5.1); Sodium 131 mMol/L (136-145)
[2024-07-14 21:14] LABS: Alanine Aminotransferase 116 U/L (10-49); Albumin, Serum 3.8 gm/dL (3.4-4.8); Albumin/Globulin Ratio 1.4 (1.2-2.2); Alkaline Phosphatase 76 U/L (46-116); Anion Gap 11 (7-16); Aspartate Amino Transferase 117 U/L (0-34); BUN/Creatinine Ratio 17 Ratio (12-20); Bilirubin,Total 2.8 mg/dL (0.3-1.2); Blood Urea Nitrogen 19 mg/dL (9-23); Calcium 8.8 mg/dL (8.3-10.6); Creatinine (Component) 1.1 mg/dL (0.6-1.3); Estimated Creatinine Clearance 53.7 mL/min (>60); Globulin 2.8 gm/dL (2.3-3.5); Osmolality,Calculated 284 (275-295); Total Protein 6.6 gm/dL (5.7-8.2); eGFR > 60 See Note
[2024-07-14] MEDS: INSULIN LISPRO (AdmeLOG) 1 UNIT/0.01 ML UNIT 10 UNIT SC (23:18)
[2024-07-15] VITALS (8 sets, daily range): BP systolic 149–164; BP diastolic 67–111; PULSE 63–126; RESP 14–97; TEMP 36.2–36.9; O2SAT 93–94; BMI 28.7
[2024-07-15] MEDS: POTASSIUM CHL 10 mEq IVPB 10 MEQ/100 ML BAG 100 MEQ IV
[2024-07-15] MEDS: INSULIN LISPRO (AdmeLOG) 1 UNIT/0.01 ML UNIT SC ×4 (01:02→16:40)
[2024-07-15] MEDS: HYDROmorphone INJ 2 MG/ML VIAL 1 MG IVP ×2 (01:08→07:33)
--- NOTE | 2024-07-15 03:10 | PC.NURSE ---
[facility] downtime from [phone].
[2024-07-15] MEDS: ACETAMINOPHEN IVPB 1,000 MG/100 ML VIAL 250 MG IV ×2 (03:42→12:02)
[2024-07-15 05:26] LABS: Basophils % (Auto) 0 % (0-2.5); Eosinophils % (Auto) 0 % (0-10); Hematocrit 39.1 % (41.0-53.0); Hemoglobin 14.1 g/dL (13.5-16.0); Immature Granulocytes % (Auto) 1 % (0-0); Immature Granulocytes Auto 0.13 Thou/mm3 (0.00-0.00); Lymphocytes % (Auto) 6 % (10-50); Mean Corpuscular HGB Conc 36.1 g/dl (31.0-37.0); Mean Corpuscular Hemoglobin 29.7 pg (25.0-35.0); Mean Corpuscular Volume 83 fL (80-100); Monocytes # (Auto) 0.6 Thou/mm3 (0.0-0.8); Monocytes % (Auto) 3 % (0-12); Neutrophils # (Auto) 15.9 Thou/mm3 (1.8-7.7); Neutrophils % (Auto) 91 % (37-80); Nucleated Red Blood Cell % 0 /100 WBC (0); Platelet Count 157 Thou/mm3 (140-440); RDW Standard Deviation 38.4 fL (35.1-43.9); Red Blood Count 4.74 Miln/mm3 (4.50-5.90); White Blood Count 17.6 Thou/mm3 (3.8-10.6)
[2024-07-15 05:46] LABS: INR 1.1 (0.9-1.3); Partial Thromboplastin Time 30.3 Seconds (22.0-36.0); Prothrombin Time 11.9 Seconds (9.0-12.2)
[2024-07-15 05:55] LABS: Glucose Estimated Average 177 mg/dL (80-131); Hemoglobin A1C 7.8 % Hgb (4.8-6.0)
[2024-07-15] MEDS: PIPER/TAZO INJ 3.375 GM in SODIUM CHLORIDE 0.9% (Popper) 50 ML IV ×3 (06:08→21:38)
[2024-07-15 06:31] LABS: Alanine Aminotransferase 85 U/L (10-49); Albumin, Serum 3.7 gm/dL (3.4-4.8); Albumin/Globulin Ratio 1.4 (1.2-2.2); Alkaline Phosphatase 76 U/L (46-116); Anion Gap 9 (7-16); Aspartate Amino Transferase 81 U/L (0-34); BUN/Creatinine Ratio 21 Ratio (12-20); Bilirubin,Total 1.9 mg/dL (0.3-1.2); Blood Urea Nitrogen 19 mg/dL (9-23); Calcium 8.8 mg/dL (8.3-10.6); Carbon Dioxide 21.3 mMol/L (20.0-31.0); Chloride 105 mMol/L (98-107); Creatinine (Component) 0.9 mg/dL (0.6-1.3); Estimated Creatinine Clearance 65.7 mL/min (>60); Globulin 2.6 gm/dL (2.3-3.5); Glucose 245 mg/dL (74-106); Magnesium 2.1 mg/dL (1.6-2.6); Osmolality,Calculated 280 (275-295); Phosphorous 1.5 mg/dL (2.4-5.1); Potassium 3.9 mMol/L (3.4-5.1); Sodium 135 mMol/L (136-145); Thyroid Stimulating Hormone 1.85 uIU/mL (0.55-4.78); Total Protein 6.3 gm/dL (5.7-8.2); eGFR > 60 See Note
[2024-07-15] MEDS: SODIUM CHLORIDE 0.9% 1000 ML 1,000 ML 100 ML IV ×2 (07:19→18:00)
[2024-07-15] MEDS: PANTOPRAZOLE INJ 40 MG VIAL IVP (08:13)
--- NOTE | 2024-07-15 08:29 | PC.NURSE ---
Reassess pain unrelieved. Educated patient to ambulate.
[2024-07-15] MEDS: NAPH,KPH MBDB 1 PACKET (1.5 GM) 2 PACKET PO (10:08)
[2024-07-15] MEDS: Lisinopril 2.5 MG TABLET 10 MG PO (10:09)
[2024-07-15] MEDS: FOLIC ACID 1 MG TABLET PO ×2 (10:11→20:21)
[2024-07-15] MEDS: THIAMINE 100 MG TABLET PO ×2 (10:11→20:21)
--- NOTE | 2024-07-15 11:42 | PD.SURPROG ---
Documentation for date of: 07/15/24 Subjective Subjective Narrative: Patient is seen and examined. His pain is improving Exam Vital Signs Temp Pulse Resp BP Pulse Ox O2 Del Method O2 Flow Rate 98.2 F 126 H 14 156/111 H 93 L Room Air 2 07/15/24 07:50 07/15/24 10:09 07/15/24 07:50 07/15/24 10:09 07/15/24 07:50 07/15/24 07:50 07/14/24 20:00 Constitutional Constitutional: no acute distress Routine Abdominal Exam Comments: Abdomen is soft and nondistended. Incision with dressings clean, dry and intact. AKUA drain in place with minimal serosanguineous drainage Assessment & Plan Assessment Additional comments: Postop day #1 status post open cholecystectomy for gangrenous cholecystitis Plan Continue IV antibiotics. Patient is advised to increase ambulation Procedures Procedures Attempted laparoscopic, converted to open cholecystectomy
[2024-07-15] MEDS: INSULIN LISPRO (AdmeLOG) 1 UNIT/0.01 ML UNIT 2 UNIT SC ×2 (12:09→16:39)
--- NOTE | 2024-07-15 14:35 | PC.SS ---
Rounding note: postop day one of status post open cholecystectomy, receiving IV antibiotics.
--- NOTE | 2024-07-15 14:41 | ESPR_ITS ---
<Statement entered by Luke Belcher MD - 07/15/24 15:16> Patient was seen and examined at the bedside. Patient reported that this pain has improved and patient's son was present at bedside. We reported that we are trying to address his blood sugars and blood pressure as he is not currently on any medication. Lisinopril 10 mg Po started for blood pressure management. Insulin sliding scale and Lantus was adjusted for type 2 diabetes. Blood cultures are growing negative for 24 hours. Patient is postop day 1 after laparoscopic cholecystectomy and will be managed for pain and will follow with surgery recommendations. Neutra-Phos was given. White count slightly improved. Blood pressure was slightly improved than yesterday. All labs and orders were reviewed. I saw and examined the patient, and I agree with current management stated by Dr Zara MD,PGY1. Plan of care was discussed with the attending physician and resident physician. Disclaimer: Despite multiple revisions, due to the dictation software being used, the document bellow may not be free of grammatical errors including phonetic/typographic errors. However, this does not deter from our commitment to providing health care in the patient's best interest in mind. Dr. Simi MD, PGY 2 Documentation for date of: 07/15/24 Subjective Subjective Interval history: Clemente Rodarte is a 73-year-old male with a past medical history of hypertension (not on medications) who presented to the ED on 07/13 with abdominal pain. Pain started on Saturday and patient describes it as constant, 8/10 in severity, and in right upper quadrant. Also endorses epigastric pain but it does not radiate to the back. Associated nausea and nonbloody emesis with decreased p.o. intake but denies fever, chills, or change in bowel habits. In ED, BP 211/113, afebrile, and other vital signs stable. Labs significant for leukocytosis of 24, normal platelets, sodium 130, glucose 266, lactic acid 2.7 (down trended to 1.7), AST 47, ALT 74, T. bili 3.8, normal ALP, lipase normal, Pro-Mike 0.53. On CT A/P, cholelithiasis (suspicious for cholecystitis), possible pancreatitis, significant inflammatory change in right colon and terminal ileus. MRCP showed cirrhosis, acute cholecystitis (no stones in common hepatic or common bile duct), acute pancreatitis, edema in right colon and terminal ileum. CXR showed possible early pneumonia left lung base. Admitted for acute cholecystitis and general surgery consulted who will take patient to the OR. 07/15: Seen and examined on medical floor. No acute overnight events reported. POD 1, attempted laparoscopic cholecystectomy but converted to open. Found to have gangrenous cholecystitis with multiple gallstones and significant pericholcystic inflammation. AKUA drain in place draining serosanguineous fluid. Pain is well-controlled on current regimen. Patient states that he is passing flatus but no BMs at time of evaluation. Informed patient and son regarding diagnosis of diabetes and referred dietitian for education. Currently on diabetic full liquid and will advance as tolerated. Started on lisinipril 10 mg daily given new diagnosis of diabetes and known history of hypertension, as well as 30 units glargine HS and 2 units lispro TIDWM. Exam Vital Signs Temp Pulse Resp BP Pulse Ox O2 Del Method O2 Flow Rate 97.1 F 104 H 14 158/77 H 94 L Room Air 2 07/15/24 12:00 07/15/24 12:00 07/15/24 12:00 07/15/24 12:00 07/15/24 12:00 07/15/24 12:00 07/14/24 20:00 Narrative Exam General: AOx3, no acute distress, able to speak full sentences HEENT: NC/AT, mucous membranes moist, bilateral sclera anicteric Cardiovascular: regular rate and rhythm, S1/S2 present, no murmurs appreciated Pulmonary: clear to auscultation bilaterally, no rales/rhonchi/wheezes Abdominal: soft, nondistended, bandage over incision site with AKUA drain in place draining serosanguineous fluid Musculoskeletal: normal ROM, no peripheral edema Skin: warm and dry, intact, no rashes Neuro: CN II-XII intact, no focal deficits Objective Labs 07/15/24 04:48 07/15/24 04:48 Labs: Laboratory Results - last 24 hr 07/14/24 07/15/24 19:05 04:48 WBC 17.6 H RBC 4.74 Hgb 14.1 D Hct 39.1 L MCV 83 MCH 29.7 MCHC 36.1 RDW Std Deviation 38.4 Plt Count 157 Neut % (Auto) 91 H Lymph % (Auto) 6 L [place] % (Auto) 3 Eos % (Auto) 0 Baso % (Auto) 0 Neut # (Auto) 15.9 H Lymph # (Auto) 1.0 [place] # (Auto) 0.6 Eos # (Auto) 0.0 Baso # (Auto) 0.0 Immature Gran # (Auto) 0.13 H Absolute Nucleated RBC 0.00 Immature Gran % 1 H Nucleated RBC % 0 PT 11.9 INR 1.1 APTT 30.3 Sodium 131 L 135 L Potassium 3.8 D 3.9 Chloride 102 105 Carbon Dioxide 18.4 L 21.3 Anion Gap 11 9 BUN 19 19 Creatinine 1.1 0.9 Estim Creat Clear Calc 53.7 L 65.7 eGFR > 60 > 60 BUN/Creatinine Ratio 17 21 H Glucose 456 H* D [address] Glu mg/dL 177 H Hemoglobin A1c 7.8 H Calculated Osmolality 284 280 Calcium 8.8 8.8 Corrected Calcium 9.0 9.0 Phosphorus 1.5 L Magnesium 2.1 Total Bilirubin 2.8 H D 1.9 H D AST 117 H 81 H ALT 116 H 85 H Alkaline Phosphatase 76 76 Total Protein 6.6 6.3 Albumin 3.8 3.7 Globulin 2.8 2.6 Albumin/Globulin Ratio 1.4 1.4 TSH 1.85 Quality Measures Quality Measures none Advance care planning discussed with:: other Assessment & Plan Assessment Current Active Medications: Generic Name Dose Route Start Last Admin Trade Name Freq PRN Reason Stop Dose Admin Acetaminophen 650 mg 07/14/24 14:50 Acetaminophen 325 Mg Tablet PO 08/13/24 09:27 Q6H PRN PAIN(1-3) OR FEVER > 100.4 Hydrocodone Bitart/Acetaminophen 1 tab 07/14/24 14:47 Hydrocodone/Apap 7.5/325 Tablet PO 07/19/24 14:46 Q6HR PRN PAIN SCALE 4-6 (Moderate Dextrose 25 ml 07/14/24 10:54 Dextrose 50%-Water Inj 50 Ml Syringe IV 08/13/24 10:53 Q15MIN PRN BG 50-70 responsive npo pt Dextrose 50 ml 07/14/24 10:54 Dextrose 50%-Water Inj 50 Ml Syringe IV 08/13/24 10:53 Q15MIN PRN BG <50 OR BG <70 & pt unresponsive Docusate Sodium 100 mg 07/14/24 21:00 07/15/24 10:13 Docusate Sod 100 Mg Capsule PO 08/13/24 20:59 Not Given BID [facility] [place] Protocol Folic Acid 1 mg 07/14/24 21:00 07/15/24 10:11 Folic Acid 1 Mg Tablet PO 07/19/24 20:59 1 mg BID RBIAN Administration Glucagon 1 mg 07/14/24 10:54 Glucagon Inj 1 Mg Vial IM Q15MIN PRN BG <70, and no IV access Hydralazine HCl 10 mg 07/14/24 16:16 07/14/24 16:18 Hydralazine Inj 20 Mg/Ml Vial IV 08/13/24 16:03 10 mg Q6HR PRN Administration SBP > 180 Hydromorphone HCl 1 mg 07/14/24 14:47 07/15/24 07:33 Hydromorphone Inj 2 Mg/Ml Vial IVP 07/19/24 14:46 1 mg Q3HR PRN Administration PAIN SCALE 7-10 (Severe Sodium Chloride 1,000 mls @ 100 mls/hr 07/14/24 09:30 07/15/24 07:19 Ns IV 08/13/24 09:29 100 mls/hr .Q10H BRIAN Administration Piperacillin Sod/Tazobactam 50 mls @ 12.5 mls/hr 07/14/24 14:00 07/15/24 13:49 Sod 3.375 gm/ Sodium Chloride IV 07/21/24 13:59 12.5 mls/hr Q8HR BRIAN Administration Protocol Insulin Glargine 30 unit 07/15/24 21:00 Insulin Glargine (Lantus) 5 Unit/0.05 Ml (Per 5 Units) SC 08/14/24 20:59 HS [facility] [place] Insulin Human Lispro 0 unit 07/14/24 11:00 07/15/24 12:06 Insulin Lispro (Admelog) 1 Unit/0.01 Ml Unit SC 08/13/24 10:59 2 unit Q6HR [facility] [place] Administration Protocol Insulin Human Lispro 2 unit 07/15/24 12:00 07/15/24 12:09 Insulin Lispro (Admelog) 1 Unit/0.01 Ml Unit SC 08/14/24 11:59 2 unit TIDWM BRIAN Administration Lisinopril 10 mg 07/15/24 09:00 07/15/24 10:09 Lisinopril 2.5 Mg Tablet PO 08/14/24 08:59 10 mg QDAY BRIAN Administration Lorazepam 0.5 mg 07/14/24 11:49 Lorazepam 2 Mg/Ml Vial IV 07/19/24 11:48 Q2HR PRN CIWA SCORE 8-13 Lorazepam 1 mg 07/14/24 11:49 Lorazepam 2 Mg/Ml Vial IV 07/19/24 11:48 Q2HR PRN CIWA SCORE 14-19 Ondansetron HCl 4 mg 07/14/24 09:28 07/14/24 10:10 Ondansetron Inj 2 Mg/Ml Inj 2 Ml IV 08/13/24 09:27 4 mg Q6H PRN Administration NAUSEA OR VOMITING Protocol Pantoprazole Sodium 40 mg 07/15/24 09:00 07/15/24 08:13 Pantoprazole Inj 40 Mg Vial IVP 08/14/24 08:59 40 mg QDAY BRIAN Administration Thiamine HCl 100 mg 07/14/24 21:00 07/15/24 10:11 Thiamine 100 Mg Tablet PO 07/19/24 20:59 100 mg BID BRIAN Administration Plan Clemente Rodarte is a 73-year-old male with a past medical history of hypertension (not on medications) who presented to the ED on 07/13 with abdominal pain. Pain started on Saturday and patient describes it as constant, 8/10 in severity, and in right upper quadrant. Also endorses epigastric pain but it does not radiate to the back. Associated nausea and nonbloody emesis with decreased p.o. intake but denies fever, chills, or change in bowel habits. Imaging showed acute cholecystitis and admitted for management of same and general surgery consulted. S/p open cholecystectomy on 07/14. #Acute calculus, gangrenous cholecystitis #Cholelithiasis #Leukocytosis RUQ and epigastric pain for 3 days. No fever or chills but does endorse nausea and vomiting. Vital signs stable with leukocytosis, but not septic. CT A/P showed concerns for cholecystitis that was confirmed on MRCP. Imaging also showed signs of pancreatitis, however lipase negative and pain does not radiate to back. S/p open cholecystectomy on 07/14, found to have gangrenous gallbladder with multiple gallstones and significant pericholecystic inflammation. WBC downtrending, t bili downtrending, and LFTs also downtrending. ? General Surgery consulted, POD 1 ? Diabetic full liquid diet ? Zosyn 3.375 g IV every 8 hours ? Zofran for nausea ? [place] PO q6hr PRN and dilaudid 1.0 mg IV q3hr PRN ? Follow-up blood cultures #Alcohol dependence Endorses drinking 6-8 beers per day and last drink was on Saturday. No tremors on exam, denies anxiety, agitation, or headaches and alert and orientated x 3. ? Referral to public health social worker ? CIWA protocol ? Multivitamins, thiamine #Newly diagnosed diabetes mellitus A1c 7.8%, with highest blood sugar recorded at 450 ? Glargine 30 units HS ? Lispro 2 units TIDWM ? SSI q6hr ? Referral to hogshead hooper #Hypophosphatemia ? Replenished with neutraphos packets x2 ? Follow-up AM labs #Hypertensive urgency #Primary hypertension Not prescribed any home antihypertensives. ? Lisinopril 10 mg daily ? As needed hydralazine #ASCVD, high risk ASCVD risk calculator 49% with at least moderate intensity statin recommendation Lipid panel showed TGL 84, cholesterol 153, LDL 76, HDL 60 ? Consider starting moderate intensity statin #? Inflammatory bowel disease, Crohn's versus UC Denies diarrhea or constipation or bloody bowel movements, arthritic pain, eye pain/uveitis, oral lesions, or skin rashes. CT showed inflammatory changes of right colon and terminal ileum. ? Follow-up fecal calprotectin Hospital management: Disposition: POD 1, on IV antibiotics Fluids: none Diet: diabetic full liquid diet Lines: PIV DVT prophylaxis: heparin SC BID GI prophylaxis: pantoprazole CODE STATUS: full code ----- Plan discussed with attending physician Dr. Amaya and senior resident physician Dr. Simi Zuñiga MD PGY-1 Internal Medicine Attending Provider Attestation/Addendum I have discussed and was present for the essential components of the history, physical examination, diagnosis, and treatment plan with the resident. I agree with the patient's care as documented by the resident and amended herein by me. Toño Amaya DO. Patient seen and evaluated this AM. Postop day 1 from laparoscopic cholecystectomy. Patient doing well, no subjective complaints this morning. The patient did endorse bowel movements however none were recorded in the AM. Will continue Zosyn for now, advance diet as tolerated, increase ambulation. Likely discharge in 1 to 2 days pending improvement and specialist recommendations. Although this document has been carefully reviewed, there may still be some phonetic and other typographical errors. These errors are purely grammatical due to imperfections in the software program and should not be construed in any way to compromise the substance of the patient's medical care during this visit.
[2024-07-15] MEDS: INSULIN GLARGINE (Lantus) 5 UNIT/0.05 ML (PER 5 UNITS) 30 UNIT SC (20:19)
[2024-07-15] MEDS: HYDROcodone/APAP 7.5/325 TABLET 1 TAB PO (20:21)
[2024-07-16] VITALS (10 sets, daily range): BP systolic 152–182; BP diastolic 85–93; PULSE 54–104; RESP 14–93; TEMP 36.2–36.8; O2SAT 93–95
[2024-07-16] MEDS: INSULIN LISPRO (AdmeLOG) 1 UNIT/0.01 ML UNIT SC ×3 (00:28→21:12)
[2024-07-16] MEDS: SODIUM CHLORIDE 0.9% 1000 ML 1,000 ML 100 ML IV ×2 (04:00→13:03)
[2024-07-16] MEDS: PIPER/TAZO INJ 3.375 GM in SODIUM CHLORIDE 0.9% (Popper) 50 ML IV ×3 (05:40→21:13)
[2024-07-16 05:59] LABS: Basophils % (Auto) 0 % (0-2.5); Eosinophils % (Auto) 0 % (0-10); Hematocrit 37.4 % (41.0-53.0); Immature Granulocytes % (Auto) 1 % (0-0); Immature Granulocytes Auto 0.09 Thou/mm3 (0.00-0.00); Lymphocytes # (Auto) 1.6 Thou/mm3 (1.0-4.8); Lymphocytes % (Auto) 11 % (10-50); Mean Corpuscular HGB Conc 34.8 g/dl (31.0-37.0); Mean Corpuscular Hemoglobin 29.4 pg (25.0-35.0); Mean Corpuscular Volume 85 fL (80-100); Monocytes # (Auto) 0.7 Thou/mm3 (0.0-0.8); Monocytes % (Auto) 5 % (0-12); Neutrophils # (Auto) 12.1 Thou/mm3 (1.8-7.7); Neutrophils % (Auto) 84 % (37-80); Nucleated Red Blood Cell % 0 /100 WBC (0); Platelet Count 169 Thou/mm3 (140-440); Red Blood Count 4.42 Miln/mm3 (4.50-5.90); White Blood Count 14.4 Thou/mm3 (3.8-10.6)
[2024-07-16 06:08] LABS: Prothrombin Time 10.9 Seconds (9.0-12.2)
[2024-07-16 06:23] LABS: Alanine Aminotransferase 78 U/L (10-49); Albumin, Serum 3.5 gm/dL (3.4-4.8); Albumin/Globulin Ratio 1.4 (1.2-2.2); Alkaline Phosphatase 73 U/L (46-116); Anion Gap 8 (7-16); Aspartate Amino Transferase 50 U/L (0-34); BUN/Creatinine Ratio 27 Ratio (12-20); Bilirubin,Total 1.2 mg/dL (0.3-1.2); Blood Urea Nitrogen 16 mg/dL (9-23); Calcium 8.4 mg/dL (8.3-10.6); Calcium (Corrected) 8.8 mg/dL (8.5-10.1); Carbon Dioxide 22.6 mMol/L (20.0-31.0); Chloride 109 mMol/L (98-107); Creatinine (Component) 0.6 mg/dL (0.6-1.3); Estimated Creatinine Clearance 96.4 mL/min (>60); Globulin 2.5 gm/dL (2.3-3.5); Glucose 143 mg/dL (74-106); Magnesium 2.1 mg/dL (1.6-2.6); Osmolality,Calculated 282 (275-295); Phosphorous 1.8 mg/dL (2.4-5.1); Potassium 3.5 mMol/L (3.4-5.1); Sodium 140 mMol/L (136-145); eGFR > 60 See Note
[2024-07-16] MEDS: INSULIN LISPRO (AdmeLOG) 1 UNIT/0.01 ML UNIT 2 UNIT SC ×3 (08:04→17:12)
[2024-07-16] MEDS: PANTOPRAZOLE INJ 40 MG VIAL IVP (09:10)
[2024-07-16] MEDS: Lisinopril 2.5 MG TABLET 20 MG PO (09:10)
[2024-07-16] MEDS: THIAMINE 100 MG TABLET PO ×2 (09:11→20:42)
[2024-07-16] MEDS: FOLIC ACID 1 MG TABLET PO ×2 (09:11→20:42)
[2024-07-16] MEDS: NAPH,KPH MBDB 1 PACKET (1.5 GM) 2 PACKET PO (09:12)
--- NOTE | 2024-07-16 11:22 | ESPR_ITS ---
<Statement entered by Luke Belcher MD - 07/16/24 14:24> Patient was seen and examined at the bedside. Patient reported that he has mild abdominal discomfort on the surgical site. Surgery recommended to keep the patient in advance diet as tolerated as patient had gangrenous cholecystitis requiring open cholecystectomy. Morning labs were unremarkable. Currently started on low-fat diet. Patient's blood pressure remained elevated this morning therefore losartan was increased to 20 mg once daily and hydrochlorothiazide was added. Will follow with surgery recommendations. All labs and orders were reviewed. I saw and examined the patient, and I agree with current management stated by Dr Zara MD,PGY1. Plan of care was discussed with the attending physician and resident physician. Disclaimer: Despite multiple revisions, due to the dictation software being used, the document bellow may not be free of grammatical errors including phonetic/typographic errors. However, this does not deter from our commitment to providing health care in the patient's best interest in mind. Dr. Simi MD, PGY 2 Documentation for date of: 07/16/24 Subjective Subjective Interval history: Clemente Rodarte is a 73-year-old male with a past medical history of hypertension (not on medications) who presented to the ED on 07/13 with abdominal pain. Pain started on Saturday and patient describes it as constant, 8/10 in severity, and in right upper quadrant. Also endorses epigastric pain but it does not radiate to the back. Associated nausea and nonbloody emesis with decreased p.o. intake but denies fever, chills, or change in bowel habits. In ED, BP 211/113, afebrile, and other vital signs stable. Labs significant for leukocytosis of 24, normal platelets, sodium 130, glucose 266, lactic acid 2.7 (down trended to 1.7), AST 47, ALT 74, T. bili 3.8, normal ALP, lipase normal, Pro-Mike 0.53. On CT A/P, cholelithiasis (suspicious for cholecystitis), possible pancreatitis, significant inflammatory change in right colon and terminal ileus. MRCP showed cirrhosis, acute cholecystitis (no stones in common hepatic or common bile duct), acute pancreatitis, edema in right colon and terminal ileum. CXR showed possible early pneumonia left lung base. Admitted for acute cholecystitis and general surgery consulted who will take patient to the OR. 03/: Seen and examined on medical floor. No acute overnight events reported. POD 1, attempted laparoscopic cholecystectomy but converted to open. Found to have gangrenous cholecystitis with multiple gallstones and significant pericholcystic inflammation. AKUA drain in place draining serosanguineous fluid. Pain is well-controlled on current regimen. Patient states that he is passing flatus but no BMs at time of evaluation. Informed patient and son regarding diagnosis of diabetes and referred dietitian for education. Currently on diabetic full liquid and will advance as tolerated. Started on lisinipril 10 mg daily given new diagnosis of diabetes and known history of hypertension, as well as 30 units glargine HS and 2 units lispro TIDWM. 03: Seen and examined on medical floor. No acute overnight events reported. POD 2, states that pain is well-controlled with hydrocodone (4/10 in intensity). He is passing gas, last BM was day prior. Advanced diet to low-fat per generall surgery recommendations and will see how patient tolerates. Otherwise, AKUA drain continuing to drain serosanguineous fluid. Lisinopril increased to 20 mg daily and added HCTZ 12.5 mg daily. Blood sugars well -controlled with glargine 30 units H and 2 units lispro TIDWM. Exam Vital Signs Temp Pulse Resp BP Pulse Ox O2 Del Method O2 Flow Rate 97.5 F 64 16 170/88 H 93 L Room Air 2 07/16/24 11:19 07/16/24 11:19 07/16/24 11:19 07/16/24 11:19 07/16/24 11:19 07/16/24 11:19 07/14/24 20:00 Narrative Exam General: AOx3, no acute distress, able to speak full sentences HEENT: NC/AT, mucous membranes moist, bilateral sclera anicteric Cardiovascular: regular rate and rhythm, S1/S2 present, no murmurs appreciated Pulmonary: clear to auscultation bilaterally, no rales/rhonchi/wheezes Abdominal: soft, nondistended, bandage over incision site with AKUA drain in place draining serosanguineous fluid Musculoskeletal: normal ROM, no peripheral edema Skin: warm and dry, intact, no rashes Neuro: CN II-XII intact, no focal deficits Objective Labs 07/16/24 04:08 07/16/24 04:08 Labs: Laboratory Results - last 24 hr 07/16/24 04:08 WBC 14.4 H RBC 4.42 L Hgb 13.0 L Hct 37.4 L MCV 85 MCH 29.4 MCHC 34.8 RDW Std Deviation 40.0 Plt Count 169 Neut % (Auto) 84 H Lymph % (Auto) 11 Burnett % (Auto) 5 Eos % (Auto) 0 Baso % (Auto) 0 Neut # (Auto) 12.1 H Lymph # (Auto) 1.6 Burnett # (Auto) 0.7 Eos # (Auto) 0.0 Baso # (Auto) 0.0 Immature Gran # (Auto) 0.09 H Absolute Nucleated RBC 0.00 Immature Gran % 1 H Nucleated RBC % 0 PT 10.9 INR 1.0 Sodium 140 Potassium 3.5 Chloride 109 H Carbon Dioxide 22.6 Anion Gap 8 BUN 16 Creatinine 0.6 Estim Creat Clear Calc 96.4 eGFR > 60 BUN/Creatinine Ratio 27 H Glucose 143 H D Calculated Osmolality 282 Calcium 8.4 Corrected Calcium 8.8 Phosphorus 1.8 L Magnesium 2.1 Total Bilirubin 1.2 D AST 50 H ALT 78 H Alkaline Phosphatase 73 Total Protein 6.0 Albumin 3.5 Globulin 2.5 Albumin/Globulin Ratio 1.4 Quality Measures Quality Measures none Advance care planning discussed with:: other Assessment & Plan Assessment Current Active Medications: Generic Name Dose Route Start Last Admin Trade Name Freq PRN Reason Stop Dose Admin Acetaminophen 650 mg 07/14/24 14:50 Acetaminophen 325 Mg Tablet PO 08/13/24 09:27 Q6H PRN PAIN(1-3) OR FEVER > 100.4 Hydrocodone Bitart/Acetaminophen 1 tab 07/14/24 14:47 07/15/24 20:21 Hydrocodone/Apap 7.5/325 Tablet PO 07/19/24 14:46 1 tab Q6HR PRN Administration PAIN SCALE 4-6 (Moderate Dextrose 25 ml 07/14/24 10:54 Dextrose 50%-Water Inj 50 Ml Syringe IV 08/13/24 10:53 Q15MIN PRN BG 50-70 responsive npo pt Dextrose 50 ml 07/14/24 10:54 Dextrose 50%-Water Inj 50 Ml Syringe IV 08/13/24 10:53 Q15MIN PRN BG <50 OR BG <70 & pt unresponsive Docusate Sodium 100 mg 07/14/24 21:00 07/16/24 09:13 Docusate Sod 100 Mg Capsule PO 08/13/24 20:59 Not Given BID [facility] Protocol Folic Acid 1 mg 07/14/24 21:00 07/16/24 09:11 Folic Acid 1 Mg Tablet PO 07/19/24 20:59 1 mg BID BRIAN Administration Glucagon 1 mg 07/14/24 10:54 Glucagon Inj 1 Mg Vial IM Q15MIN PRN BG <70, and no IV access Hydralazine HCl 10 mg 07/14/24 16:16 07/14/24 16:18 Hydralazine Inj 20 Mg/Ml Vial IV 08/13/24 16:03 10 mg Q6HR PRN Administration SBP > 180 Hydrochlorothiazide 12.5 mg 07/16/24 11:30 Hydrochlorothiazide 12.5 Mg Capsule PO 08/15/24 11:29 QDAY BRIAN Hydromorphone HCl 1 mg 07/14/24 14:47 07/15/24 07:33 Hydromorphone Inj 2 Mg/Ml Vial IVP 07/19/24 14:46 1 mg Q3HR PRN Administration PAIN SCALE 7-10 (Severe Sodium Chloride 1,000 mls @ 100 mls/hr 07/14/24 09:30 07/16/24 04:00 Ns IV 08/13/24 09:29 100 mls/hr .Q10H BRIAN Administration Piperacillin Sod/Tazobactam 50 mls @ 12.5 mls/hr 07/14/24 14:00 07/16/24 05:40 Sod 3.375 gm/ Sodium Chloride IV 07/21/24 13:59 12.5 mls/hr Q8HR BRIAN Administration Protocol Insulin Glargine 30 unit 07/15/24 21:00 07/15/24 20:19 Insulin Glargine (Lantus) 5 Unit/0.05 Ml (Per 5 Units) SC 08/14/24 20:59 30 unit HS BRIAN Administration Insulin Human Lispro 2 unit 07/15/24 12:00 07/16/24 08:04 Insulin Lispro (Admelog) 1 Unit/0.01 Ml Unit SC 08/14/24 11:59 2 unit TIDWM BRIAN Administration Insulin Human Lispro 0 unit 07/16/24 11:30 Insulin Lispro (Admelog) 1 Unit/0.01 Ml Unit SC 08/15/24 11:29 ACHS BRIAN Protocol Lisinopril 20 mg 07/16/24 09:00 07/16/24 09:10 Lisinopril 2.5 Mg Tablet PO 08/15/24 08:59 20 mg QDAY BRIAN Administration Lorazepam 0.5 mg 07/14/24 11:49 Lorazepam 2 Mg/Ml Vial IV 07/19/24 11:48 Q2HR PRN CIWA SCORE 8-13 Lorazepam 1 mg 07/14/24 11:49 Lorazepam 2 Mg/Ml Vial IV 07/19/24 11:48 Q2HR PRN CIWA SCORE 14-19 Ondansetron HCl 4 mg 07/14/24 09:28 07/14/24 10:10 Ondansetron Inj 2 Mg/Ml Inj 2 Ml IV 08/13/24 09:27 4 mg Q6H PRN Administration NAUSEA OR VOMITING Protocol Pantoprazole Sodium 40 mg 07/15/24 09:00 07/16/24 09:10 Pantoprazole Inj 40 Mg Vial IVP 08/14/24 08:59 40 mg QDAY BRIAN Administration Thiamine HCl 100 mg 07/14/24 21:00 07/16/24 09:11 Thiamine 100 Mg Tablet PO 07/19/24 20:59 100 mg BID BRIAN Administration Plan Clemente Rodarte is a 73-year-old male with a past medical history of hypertension (not on medications) who presented to the ED on 07/13 with abdominal pain. Pain started on Saturday and patient describes it as constant, 8/10 in severity, and in right upper quadrant. Also endorses epigastric pain but it does not radiate to the back. Associated nausea and nonbloody emesis with decreased p.o. intake but denies fever, chills, or change in bowel habits. Imaging showed acute cholecystitis and admitted for management of same and general surgery consulted. S/p open cholecystectomy on 07/14. #Acute calculus, gangrenous cholecystitis #Cholelithiasis #Leukocytosis RUQ and epigastric pain for 3 days. No fever or chills but does endorse nausea and vomiting. Vital signs stable with leukocytosis, but not septic. CT A/P showed concerns for cholecystitis that was confirmed on MRCP. Imaging also showed signs of pancreatitis, however lipase negative and pain does not radiate to back. S/p open cholecystectomy on 07/14, found to have gangrenous gallbladder with multiple gallstones and significant pericholecystic inflammation. WBC downtrending, t bili downtrending, and LFTs also downtrending. ? General Surgery consulted, POD 2 ? Advanced to low-fat diet ? Zosyn 3.375 g IV every 8 hours ? Zofran for nausea ? Ashley PO q6hr PRN and dilaudid 1.0 mg IV q3hr PRN ? Follow-up blood cultures #Alcohol dependence Endorses drinking 6-8 beers per day and last drink was on Saturday. No tremors on exam, denies anxiety, agitation, or headaches and alert and orientated x 3. ? Referral to social services assistant ? CIMI protocol ? Multivitamins, thiamine #Newly diagnosed diabetes mellitus #Hyperglycemia, improving A1c 7.8%, with highest blood sugar recorded at 450 ? Glargine 30 units HS ? Lispro 2 units TIDWM ? SSI q6hr ? Referral to glass cutter #Hypophosphatemia, improving Phos 1.5, increased to 1.8 after 2 neutraphos packets and received second round of neutraphos packets ? Follow-up AM labs #Hypertensive urgency #Primary hypertension Not prescribed any home antihypertensives. ? Lisinopril 10 mg daily ? As needed hydralazine #ASCVD, high risk ASCVD risk calculator 49% with at least moderate intensity statin recommendation Lipid panel showed TGL 84, cholesterol 153, LDL 76, HDL 60 ? Consider starting moderate intensity statin #? Inflammatory bowel disease, Crohn's versus UC Denies diarrhea or constipation or bloody bowel movements, arthritic pain, eye pain/uveitis, oral lesions, or skin rashes. CT showed inflammatory changes of right colon and terminal ileum. ? Follow-up fecal calprotectin Hospital management: Disposition: POD 2, on IV antibiotics Fluids: none Diet: low-fat diet Lines: PIV DVT prophylaxis: heparin SC BID GI prophylaxis: pantoprazole CODE STATUS: full code ----- Plan discussed with attending physician Dr. Amaya and senior resident physician Dr. Simi Zuñiga MD PGY-1 Internal Medicine Attending Provider Attestation/Addendum I have discussed and was present for the essential components of the history, physical examination, diagnosis, and treatment plan with the resident. I agree with the patient's care as documented by the resident and amended herein by me. Toño Amaya DO. Patient seen and evaluated this AM. No acute events overnight, patient slightly tachycardic in the a.m with a pulse of 104. No bowel movements overnight. Patient has no subjective complaints in the a.m. Patient afebrile overnight, WBC continues to downtrend to 14 today. BMP largely unremarkable, only demonstrating a phosphorus of 1.8 and slightly elevated AST and ALT to 50 and 78 likely secondary to fatty liver disease. Will continue Zosyn at this time, encourage ambulation with the patient, advance diet as tolerated. Appreciate general surgery recommendations. Likely discharge home in 1 to 2 days pending specialist recommendations. Although this document has been carefully reviewed, there may still be some phonetic and other typographical errors. These errors are purely grammatical due to imperfections in the software program and should not be construed in any way to compromise the substance of the patient's medical care during this visit.
[2024-07-16] MEDS: hydroCHLOROthiazide 12.5 MG CAPSULE PO (13:01)
--- NOTE | 2024-07-16 13:23 | PD.SURPROG ---
Documentation for date of: 07/16/24 Subjective Subjective Narrative: Patient is seen and examined. His pain is improving and he is tolerating diet. He has been voiding and ambulating without difficulty Exam Vital Signs Temp Pulse Resp BP Pulse Ox O2 Del Method O2 Flow Rate 97.5 F 72 16 182/90 H 93 L Room Air 2 07/16/24 11:19 07/16/24 13:01 07/16/24 11:19 07/16/24 13:01 07/16/24 11:19 07/16/24 11:19 07/14/24 20:00 Constitutional Constitutional: no acute distress Routine Abdominal Exam Comments: Abdomen is soft and nondistended. Incision with dressings clean, dry and intact. AKUA drain with minimal serosanguineous drainage Assessment & Plan Assessment Additional comments: Postop day #2 status post open cholecystectomy for gangrenous cholecystitis. WBC and liver enzymes are improving Plan Continue IV antibiotics. Advance patient's diet. Procedures Procedures Attempted laparoscopic, converted to open cholecystectomy
--- NOTE | 2024-07-16 14:22 | PC.SS ---
Rounding note: pending surgery recommendations: continue IV antibiotics & advance patient's diet.
[2024-07-16] MEDS: ACETAMINOPHEN 325 MG TABLET 650 MG PO (17:27)
[2024-07-16] MEDS: INSULIN GLARGINE (Lantus) 5 UNIT/0.05 ML (PER 5 UNITS) 30 UNIT SC (21:11)
[2024-07-16] MEDS: DOCUSATE SOD 100 MG CAPSULE PO (21:22)
[2024-07-17] VITALS (12 sets, daily range): BP systolic 150–204; BP diastolic 62–113; PULSE 54–626; RESP 16–96; TEMP 36.1–36.9; O2SAT 93–97
[2024-07-17] MEDS: hydrALAZINE INJ 20 MG/ML VIAL 10 MG IV ×2 (05:14→12:18)
[2024-07-17] MEDS: PIPER/TAZO INJ 3.375 GM in SODIUM CHLORIDE 0.9% (Popper) 50 ML IV ×2 (05:21→14:09)
[2024-07-17 05:46] LABS: Basophils % (Auto) 0 % (0-2.5); Eosinophils # (Auto) 0.1 Thou/mm3 (0.0-0.5); Eosinophils % (Auto) 1 % (0-10); Hematocrit 38.7 % (41.0-53.0); Hemoglobin 13.7 g/dL (13.5-16.0); Immature Granulocytes % (Auto) 1 % (0-0); Immature Granulocytes Auto 0.05 Thou/mm3 (0.00-0.00); Lymphocytes # (Auto) 2.4 Thou/mm3 (1.0-4.8); Lymphocytes % (Auto) 26 % (10-50); Mean Corpuscular HGB Conc 35.4 g/dl (31.0-37.0); Mean Corpuscular Volume 82 fL (80-100); Monocytes # (Auto) 0.7 Thou/mm3 (0.0-0.8); Monocytes % (Auto) 8 % (0-12); Neutrophils # (Auto) 5.8 Thou/mm3 (1.8-7.7); Neutrophils % (Auto) 64 % (37-80); Nucleated Red Blood Cell % 0 /100 WBC (0); Platelet Count 181 Thou/mm3 (140-440); RDW Standard Deviation 38.1 fL (35.1-43.9); Red Blood Count 4.72 Miln/mm3 (4.50-5.90); White Blood Count 9.1 Thou/mm3 (3.8-10.6)
[2024-07-17 06:00] LABS: Prothrombin Time 11.2 Seconds (9.0-12.2)
[2024-07-17 06:06] LABS: Alanine Aminotransferase 95 U/L (10-49); Albumin, Serum 3.8 gm/dL (3.4-4.8); Albumin/Globulin Ratio 1.6 (1.2-2.2); Alkaline Phosphatase 76 U/L (46-116); Anion Gap 10 (7-16); Aspartate Amino Transferase 74 U/L (0-34); BUN/Creatinine Ratio 20 Ratio (12-20); Bilirubin,Total 1.4 mg/dL (0.3-1.2); Blood Urea Nitrogen 12 mg/dL (9-23); Calcium (Corrected) 9.2 mg/dL (8.5-10.1); Chloride 108 mMol/L (98-107); Creatinine (Component) 0.6 mg/dL (0.6-1.3); Estimated Creatinine Clearance 96.4 mL/min (>60); Globulin 2.4 gm/dL (2.3-3.5); Glucose 84 mg/dL (74-106); Magnesium 1.8 mg/dL (1.6-2.6); Osmolality,Calculated 283 (275-295); Phosphorous 2.9 mg/dL (2.4-5.1); Potassium 3.4 mMol/L (3.4-5.1); Sodium 143 mMol/L (136-145); Total Protein 6.2 gm/dL (5.7-8.2); eGFR > 60 See Note
[2024-07-17] MEDS: PANTOPRAZOLE INJ 40 MG VIAL IVP (08:00)
[2024-07-17] MEDS: hydroCHLOROthiazide 12.5 MG CAPSULE PO (08:01)
[2024-07-17] MEDS: DOCUSATE SOD 100 MG CAPSULE PO (08:01)
[2024-07-17] MEDS: THIAMINE 100 MG TABLET PO (08:01)
[2024-07-17] MEDS: FOLIC ACID 1 MG TABLET PO (08:01)
[2024-07-17] MEDS: Lisinopril 2.5 MG TABLET 40 MG PO (08:05)
[2024-07-17] MEDS: HYDROcodone/APAP 7.5/325 TABLET 1 TAB PO (08:53)
[2024-07-17] MEDS: INSULIN LISPRO (AdmeLOG) 1 UNIT/0.01 ML UNIT 2 UNIT SC (11:36)
[2024-07-17] MEDS: INSULIN LISPRO (AdmeLOG) 1 UNIT/0.01 ML UNIT SC (11:36)
--- NOTE | 2024-07-17 12:19 | PD.SURPROG ---
Documentation for date of: 07/17/24 Subjective Subjective Narrative: Patient is seen and examined. His pain is improving. He is tolerating diet without nausea or vomiting. He is voiding and ambulating without difficulty and having bowel movements Exam Vital Signs Temp Pulse Resp BP Pulse Ox O2 Del Method O2 Flow Rate 98.5 F 75 17 195/80 H 95 Room Air 2 07/17/24 08:00 07/17/24 12:18 07/17/24 08:00 07/17/24 12:18 07/17/24 08:00 07/17/24 08:00 07/17/24 00:00 Constitutional Constitutional: no acute distress Routine Abdominal Exam Abdominal: Present soft, normoactive bowel sounds, tenderness (He has incisional tenderness. Incisions are clean, dry and intact.) and drain (AKUA drain in place and intact with minimal output); Absent distended Assessment & Plan Assessment Additional comments: Postop day #3 status post open cholecystectomy. WBC is normal and clinically patient is improving Plan AKUA drain removed. Patient can be discharged on oral antibiotics for 7 days (Cipro 500 mg p.o. twice daily). Procedures Procedures Attempted laparoscopic, converted to open cholecystectomy
--- NOTE | 2024-07-17 13:24 | ESDS_ITS ---
<Statement entered by Luke Belcher MD - 07/17/24 14:12> I saw and examined the patient, and I agree with current management stated by Dr Zara MD,PGY1. Plan of care was discussed with the attending physician and resident physician. Disclaimer: Despite multiple revisions, due to the dictation software being used, the document bellow may not be free of grammatical errors including phonetic/typographic errors. However, this does not deter from our commitment to providing health care in the patient's best interest in mind. Dr. Simi MD, PGY 2 Planned Discharge Date 07/17/24 DS: Providers Provider Date of admission: 07/14/24 09:28 Primary care physician: Physician No Primary/Family Admitting Provider: Donald Canaad MD Attending Provider on Admission: Jonny Amaya DO Consults: 07/14/24 08:32 Consult to General Surgery Stat Comment: Acute cholecystitis Consulting Provider: Aldair Metcalf 07/14/24 15:19 Referral Registered Dietitian Routine Comment: unintentional weight loss 07/15/24 08:38 Referral Registered Dietitian Routine Comment: Attending Provider on DC: Dayne Zuñiga MD Discharging Provider: Dayne Zuñiga MD DS: Diagnosis Problem List Completed Was Problem List Reviewed/Reconciled?: Yes Hospital Course Hospital Course Hospital course: Clemente Rodarte is a 73-year-old male with a past medical history of hypertension (not on medications) who presented to the ED on 07/13 with abdominal pain. Pain started on Saturday and patient describes it as constant, 8/10 in severity, and in right upper quadrant. Also endorses epigastric pain but it does not radiate to the back. Associated nausea and nonbloody emesis with decreased p.o. intake but denies fever, chills, or change in bowel habits. In ED, BP 211/113, afebrile, and other vital signs stable. Labs significant for leukocytosis of 24, normal platelets, sodium 130, glucose 266, lactic acid 2.7 (down trended to 1.7), AST 47, ALT 74, T. bili 3.8, normal ALP, lipase normal, Pro-Mike 0.53. On CT A/P, cholelithiasis (suspicious for cholecystitis), possible pancreatitis, significant inflammatory change in right colon and terminal ileus. MRCP showed cirrhosis, acute cholecystitis (no stones in common hepatic or common bile duct), acute pancreatitis, edema in right colon and terminal ileum. CXR showed possible early pneumonia left lung base. Admitted for acute cholecystitis and general surgery consulted who will take patient to the OR. Went to the OR on 07/14, where laparoscopic cholecystectomy was attempted but was converted to open. Found to have gangrenous cholecystitis with multiple gallstones and significant pericholecystic inflammation. AKUA drain was placed and on POD 1 was draining serosanguineous fluid. Pain well-controlled on [place]. Was able to pass gas and had BM on POD 1 and another BM on day of discharge, and tolerated his meals well. After cholecystectomy, no fevers, leukocytosis improved to within normal limits, and hemoglobin remained stable while on Zosyn. Blood pressure continued to remain elevated throughout hospital stay, and started patient on lisinopril 10 mg that was subsequently increased to 40 mg on discharge. Was also started on hydrochlorothiazide 12.5 mg. In addition to high blood pressure, patient blood glucose significantly elevated but was well- controlled on 30 units glargine and 2 units TIDWM and will discharge on 500 units of metformin BID. Informed patient and son regarding diagnosis of diabetes and referred dietitian for education. On discharge, instructed to finish antibiotic course of ciprofloxacin 500 mg BID for 7 more days, take HCTZ and lisinopril for BP, and metformin for diabetes. If he cannot follow-up outpatient, given option to follow-up at [facility]. Diagnoses during admission: #Acute calculus, gangrenous cholecystitis #Cholelithiasis #Leukocytosis #Alcohol dependence #Newly diagnosed diabetes mellitus #Hyperglycemia, improving #Hypophosphatemia, improving #Hypertensive urgency #Primary hypertension #ASCVD, high risk Discharge instructions: - Start taking ciprofloxacin 500 mg twice daily - Start taking hydrochlorozide 12.5 mg daily - Start taking lisinopril 40 mg daily - Start taking metformin 500 mg twice daily - Take folic acid twice daily and thiamine twice daily - Take hydrocodone-acetaminophen every 6 hours as needed for pain no more than 4 times per day - Follow-up with PCP within 1 week of discharge - If no PCP can follow-up at [facility], to make an appointment call [phone] - Obtain complete metabolic panel lab in 7 days in order to review at follow-up appointment - Follow-up with general surgery, Dr. Metcalf, within 1-2 weeks of discharge - Return to the ED if symptoms worsen or recur Time Spent with Patient Time attestation: Total time spent providing and/or coordinating discharge services: Exam Vital Signs Temp Pulse Resp BP Pulse Ox O2 Del Method O2 Flow Rate 98.5 F 75 17 195/80 H 95 Room Air 2 07/17/24 08:00 07/17/24 12:18 07/17/24 08:00 07/17/24 12:18 07/17/24 08:00 07/17/24 08:00 07/17/24 00:00 Narrative Exam General: AOx3, no acute distress, able to speak full sentences HEENT: NC/AT, mucous membranes moist, bilateral sclera anicteric Cardiovascular: regular rate and rhythm, S1/S2 present, no murmurs appreciated Pulmonary: clear to auscultation bilaterally, no rales/rhonchi/wheezes Abdominal: soft, nondistended, bandage over incision site with AKUA drain in place draining serosanguineous fluid Musculoskeletal: normal ROM, no peripheral edema Skin: warm and dry, intact, no rashes Neuro: CN II-XII intact, no focal deficits Discharge Plan Plan Patient Disposition: HOME (Self Care) Disposition Comment: Stable at signout. Care Plan Goals: - Start taking ciprofloxacin 500 mg twice daily - Start taking hydrochlorozide 12.5 mg daily - Start taking lisinopril 40 mg daily - Start taking metformin 500 mg twice daily - Take folic acid twice daily and thiamine twice daily - Take hydrocodone-acetaminophen every 6 hours as needed for pain no more than 4 times per day - Follow-up with PCP within 1 week of discharge - If no PCP can follow-up at [facility], to make an appointment call [phone] - Obtain complete metabolic panel lab in 7 days in order to review at follow-up appointment - Follow-up with general surgery, Dr. Metcalf, within 1-2 weeks of discharge - Return to the ED if symptoms worsen or recur Prescriptions/Referrals Prescriptions/Med Rec: New hydrocodone-acetaminophen 7.5-325 mg Tablet 1 tab PO Q6HR MDD 4 PRN (Reason: Pain Scale 4-6 (Moderate) Qty: 20 0RF docusate sodium 100 mg Capsule 100 mg PO BID Qty: 40 0RF ciprofloxacin HCl [Cipro] 500 mg tablet 500 mg PO BID Qty: 14 0RF hydrochlorothiazide 12.5 mg Capsule 12.5 mg PO QDAY 30 Days Qty: 30 0RF folic acid 1 mg Tablet 1 mg PO BID Qty: 14 0RF lisinopril 40 mg tablet 40 mg PO QDAY 30 Days Qty: 30 0RF thiamine mononitrate (vit B1) 100 mg Tablet 100 mg PO BID Qty: 14 0RF metformin 500 mg tablet extended release 24 hr 500 mg PO BID 30 Days Qty: 60 0RF Referrals: No Primary/Family,Physician [Primary Care Provider] - Outpatient Orders (i.e. Home Health, Labs, Imaging): Comprehensive Metabolic Panel (Routine) Timeframe: 1 Week Location: Determined by Patient Ordered By: Dayne Zuñiga Patient/Caregiver Discharge Instructions Discharge Activity: activity as tolerated Education Materials: Preventing Surgical Site Infections Print Language: Vietnamese Activity Restrictions/Additional Instructions: May remove dressings and shower in 24 hours. Avoid lifting, straining, pulling or pushing for 6 weeks. May take over the counter laxatives if no bowel movement in 2 days. Follow up with Dr. Metcalf in 2 weeks, call [phone] for an appointment. Continue low-fat diet for a week then advance diet as tolerated. Stand Alone Forms: [employer] Award Info., Patient Portal Info Letter Discharge Order Discharge Orders: Discharge (Routine); Ordered 07/17/24 Ordered By: Dayne Zuñiga Quality Discharge Quality Measures VTE prophylaxis Attestestation MD Attestation I have discussed and was present for the essential components of the discharge history, physical examination, diagnosis, and discharge treatment plan with the resident. I agree with the patient's discharge care as documented by the resident and amended herein by me. Toño Amaya DO. The patient understood all discharge instructions, all questions were answered satisfactorily. The patient was instructed to return to the Emergency Department is symptoms worsened or persisted. Patient was stable, afebrile, tolerating p.o. intake and ambulatory at time of discharge home. Although this document has been carefully reviewed, there may still be some phonetic and other typographical errors. These errors are purely grammatical due to imperfections in the software program and should not be construed in any way to compromise the substance of the patient's medical care during this visit.
== END 2024-07-17 16:45 | disposition home or self-care (01) | DRG 263 ==
LOC: SERX 07-14 08:34 → SERHOLD 07-14 09:50 → S3NX 07-14 14:33
PROVIDERS: Internal Medicine; Student in an Organized Health Care Education/Training Program; Surgery; Admitting Provider Internal Medicine; Emergency Provider Emergency Medicine; Visit Provider Student in an Organized Health Care Education/Training Program
PROC: 0FT44ZZ Resection of Gallbladder, Percutaneous Endoscopic Approach (ICD-10-PCS; CPT 47562; principal; 2024-07-14 11:30)
DX: K80.00 Calculus of gallbladder with acute cholecystitis without obstruction (principal); K82.A1 Gangrene of gallbladder in cholecystitis; F10.20 Alcohol dependence, uncomplicated; I16.0 Hypertensive urgency; E11.65 Type 2 diabetes mellitus with hyperglycemia; E83.39 Other disorders of phosphorus metabolism; K66.0 Peritoneal adhesions (postprocedural) (postinfection); K52.9 Noninfective gastroenteritis and colitis, unspecified; K74.60 Unspecified cirrhosis of liver; K76.0 Fatty (change of) liver, not elsewhere classified; I10 Essential (primary) hypertension; Z87.891 Personal history of nicotine dependence; Z53.31 Laparoscopic surgical procedure converted to open procedure; Z79.899 Other long term (current) drug therapy; Z79.84 Long term (current) use of oral hypoglycemic drugs
CPT/HCPCS: 36415; 71045; 74176; 80053; 80061; 81001; 82947; 83036; 83605; 83690; 83735; 83993; 84100; 84145; 84443; 85025; 85610; 85730; 87040; 87086; 87811; 94664; 96365; 96368; 96372; 96375; 96376; 99285; A4217; A4649; J0131; J0360; J1815; J1885; J2371; J2405; J2470; J2543; J2704; J3010; J3480; J3490; J7030; J7050; Q0162; S8037; 74181; A9270

== ENCOUNTER 2024-07-23 13:32 | Outpatient (AMB) | payer MEDICAID, SELFPAY ==
[2024-07-23 13:48] VITALS: BP 128/84; PULSE 75; RESP 16; TEMP 36.8; O2SAT 95
--- NOTE | 2024-07-23 13:48 | ACNOTE_ITS ---
Vital Signs 07/23/24 13:48 Weight 72.178 kg Weight Measurement Method Standing Scale BP 128/84 Blood Pressure Source Automatic Cuff Blood Pressure Location Left Upper Arm Position Sitting Respiration 16 Pulse 75 Pulse Source Monitor Temp 98.2 F Temp Source Temporal Artery Scan Pulse Oximetry (%) 95 Oxygen Delivery Method Room Air Allergies/Meds Allergies & Medications Allergies No Known Allergies Allergy (Verified 07/23/24 13:49) Medication Reconciliation ciprofloxacin HCl 500 mg tablet (Cipro) 500 mg PO BID #14 tabs 07/17/24 [Rx Confirmed 07/23/24] docusate sodium 100 mg capsule 100 mg PO BID #40 caps 07/17/24 [Rx Confirmed 07/23/24] folic acid 1 mg tablet 1 mg PO BID #14 tabs 07/17/24 [Rx Confirmed 07/23/24] hydrocodone 7.5 mg-acetaminophen 325 mg tablet 1 tab PO Q6HR PRN Pain Scale 4-6 (Moderate #20 tabs 07/17/24 [Rx Confirmed 07/23/24] metformin 500 mg tablet,extended release 24 hr 500 mg PO BID 1 month #60 tabs 07/17/24 [Rx Confirmed 07/23/24] thiamine mononitrate (vit B1) 100 mg tablet 100 mg PO BID #14 tabs 07/17/24 [Rx Confirmed 07/23/24] atorvastatin 40 mg tablet 40 mg PO QHS #30 tabs 07/23/24 [Rx] blood sugar diagnostic (Accutrend Glucose test strips) #50 ea 07/23/24 [Rx] blood-glucose meter #1 ea 07/23/24 [Rx] hydrochlorothiazide 12.5 mg capsule 12.5 mg PO QDAY 30 days #30 [facility] 07/23/24 [Rx] lancets 28 gauge (Bullseye Mini Safety Lancets) #100 ea 07/23/24 [Rx] losartan 50 mg tablet 50 mg PO QDAY #30 tabs 07/23/24 [Rx] MA Intake Visit Data Collection New Patient or Established: Established Patient (seen at [facility] within 3 years) Seen by Clinical Staff ONLY (RN/MA): No Pain Present Currently: No Pain scale:: 0 Pain Scale Used: Zhang-Garcia/Numerical Harpoon Engagement Planning Operator Required: No PCP or OBGYN visit in last 3 months: No Hx Now: No Do You Feel Safe at Home: Yes Authorities Contacted: N/A Smoking Status Smoking Status: Never smoker Immunization / Flu Flu Vaccine in the Last 12 Months: No Flu Vaccine Exclusion Criteria: No Exclusion Criteria Past Medical History Past Medical History NEUROLOGIC: Negative Seizures CARDIAC: Positive Hypertension; Negative Congestive Heart Failure RESPIRATORY: Negative Chronic Obstructive Pulmonary Disease (COPD) GENITOURINARY: Negative Renal Disease ENDOCRINE: Negative Diabetes Mellitus Type 1 or Diabetes Mellitus Type 2 OTHER HISTORY: Negative Blood Transfusions, Blood Transfusion Reaction or Anesthesia Reactions Social History SMOKING STATUS: Smoking status: Never smoker ALCOHOL: Alcohol Intake: Current ALCOHOL FREQUENCY: Alcohol Intake Frequency: 3 or More Drinks per Day HOUSING: Housing: House LIVES WITH: Lives With: Children Patient Portal Lavinia Social History Living Situation History Housing: House Housing Other:: was living with a friend, after discharge he will go live with son Solitario Tobacco History Smoking Status: Never smoker Alcohol History Alcohol Intake: Current Alcohol Intake Frequency: 3 or More Drinks per Day Domestic Abuse History Do You Feel Safe at Home: Yes Review of Systems Report any current symptoms Only answer those that you have currently: Past Medical History Past Medical History Have you ever been diagnosed with any of the following: Neurological Problems Seizures: No Cardiology Problems Congestive Heart Failure: No Hypertension: Yes Respiratory Problems Chronic Obstructive Pulmonary Disease (COPD): No Genital/Urinary Problems Renal Disease: No Endocrine Problems Diabetes Mellitus Type 1: No Diabetes Mellitus Type 2: No Other Problems Blood Transfusions: No Blood Transfusion Reaction: No Anesthesia Reactions: No History of Present Illness HPI Narrative 07/23/2024: Patient is a 73M with newly diagnosed T2DM (a1c 7.8%), HTN (was not on any medications) who was admitted for cholecystitis and underwent open cholecystectomy, and was discharged with ciprofloxacin to complete abx course. Patient presents for follow-up, and is to follow up with Dr. Metcalf as well. Patient reports having mild abdominal pain with deep breaths, and occasionally worsens with food. He is tolerating diet and having BMs/passing gas. Additionally during admission, patient noted to be hypertensive (was started on lisinopril, dosage increased to 40mg qDay on DC; and HCTZ 12.5mg). BP was much better controlled, and today was 128/84 in clinic. Patient endorses having a cough, therefore will switch lisinopril to losartan. Patient was advised on washout period of 36-48 hours, and will start Losartan on Tuesday 07/25. As BG/a1c was elevated, glucose was controlled with insulin while admitted, and patient was discharged with 500mg metformin ER BID. He has been watching his diet, but unable to check blood sugars. On ROS, patient endorsed cough, abdominal pain, and increased frequency/occasional difficulty with urination, but denies fever/chills, lightheaded/dizziness, syncopal episode, chest pain, SOB, vision changes, diaphoresis, or N/V/D. Review of Systems Review of Systems Systems Reviewed: All systems reviewed, normal except as documented Objective/Exam Narrative Physical exam: Gen: AAOx3, Amharic-speaking male, pleasant to speak with, occasional grimace due to pain HEENT: NCAT, PERRLA, EOMI, MMM, no LAD CVS: normal S1, S2. RRR. No MRG Resp: CTA B/L. No rhonchi, rales, crackles or wheezing Abd: soft, TTP in epigastrium/RUQ/RLQ, non-distended. BS+ in all 4 quadrants. Incision healing with maicol, clean/dry without erythema or discharge MSK: Good ROM in BUE & BLE. No edema or rash. Neuro: CN II-XII grossly intact. No focal deficits Assessment & Plan Diagnosis / Problem List (1) New onset type 2 diabetes mellitus: Status: Acute Assessment & Plan: A1c 7.8 during admission New onset T2DM Plan: Patient discharged on 500mg metformin ER BID Encouraged to follow diet/lifestyle modifications, with 150 mins of moderate exercise/week, when tolerable Ordered urine albumin:creatinine to evaluate for renal dysfunction secondary to DM Ordered CMP to evaluate renal function after initiating metformin Ordered glucometer/lancets/strips and advised patient to monitor his blood sugars. Additionally advised patient to monitor for hypoglycemic symptoms (2) Hypertension associated with diabetes: Status: Acute Assessment & Plan: Patient's BP was elevated significantly during admission (SBP 180s-190s) and he was started on lisinopril with much better control of BP Plan: Due to patient endorsing cough, lisinopril discontinued, and losartan 50mg qday ordered Advised patient of washout period, with patient to start taking losartan on Saturday07/25/2024 (3) ASCVD (arteriosclerotic cardiovascular disease): Status: Acute Assessment & Plan: Patient's ASCVD score was calculated to be 16.2%, indicating need for high- intensity statin Plan: Started patient on 40mg atorvastatin HS (4) Acute cholecystitis: Status: Acute Assessment & Plan: recent admission for gangrenous cholecystitis s/p open cholecystectomy Plan: patient completed ciprofloxacin course needs to follow up with general surgery (5) Increased urinary frequency: Status: Acute Assessment & Plan: Patient endorses increased urinary frequency with some difficulty Plan: Ordered UA to rule out UTI/cystitis DDx includes BPH vs UTI vs medication side effect (HCTZ) Patient may need imaging to rule out BPH as cause of urinary symptoms Plan Follow up CMP, UA, U albumin:creatinine Continue metformin and monitor blood sugars Lisinopril changed to losartan Started atorvastatin due to high risk ASCVD Needs to follow up with general surgery, post-open cholecystectomy Follow up with Dr. Zuñiga on 08/05/2024 to go over labs Advanced Care Planning Advance care planning discussed with:: patient and child Physician Billing New Patient New Patient: E/M Level 4-CPT 41232 Office Procedures [facility] Level of Care Nursing/Assessment Patient Status: Established Patient Nursing Assessment/Reassessment: Medication Reconciliation, Update PMH in EMR and Vital Signs Coordination of Care: Complex Care and Chronic Disease 1-5, Consent,records obtained, informed consent, Education Simp Pt/Fam, Lab and Imaging orders, Ref for ancillary service and Staff clarify orders Established Patient Charge Established Patient Point Assignment: 120 Established Patient Point Charge: Level 4 ([id number])
== END 2024-07-23 14:44 | disposition home or self-care (01) ==
LOC: HODAHC 13:32
PROVIDERS: PCP Student in an Organized Health Care Education/Training Program; Referring Provider Student in an Organized Health Care Education/Training Program; Supervising Provider Internal Medicine; Visit Provider Student in an Organized Health Care Education/Training Program
DX: I15.2 Hypertension secondary to endocrine disorders (principal); E11.9 Type 2 diabetes mellitus without complications; Z90.49 Acquired absence of other specified parts of digestive tract; I25.10 Atherosclerotic heart disease of native coronary artery without angina pectoris; R35.0 Frequency of micturition; R10.9 Unspecified abdominal pain; R39.198 Other difficulties with micturition; Z79.84 Long term (current) use of oral hypoglycemic drugs
CPT/HCPCS: 99214; G0463

== ENCOUNTER → 2024-07-23 | Outpatient (CLI) | payer MEDICAID, SELFPAY ==
[2024-07-23 16:07] LABS: Alanine Aminotransferase 110 U/L (10-49); Albumin, Serum 4.2 gm/dL (3.4-4.8); Albumin/Globulin Ratio 1.5 (1.2-2.2); Alkaline Phosphatase 114 U/L (46-116); Anion Gap 10 (7-16); Aspartate Amino Transferase 80 U/L (0-34); BUN/Creatinine Ratio 27 Ratio (12-20); Blood Urea Nitrogen 32 mg/dL (9-23); Carbon Dioxide 28.3 mMol/L (20.0-31.0); Chloride 98 mMol/L (98-107); Creatinine (Component) 1.2 mg/dL (0.6-1.3); Globulin 2.8 gm/dL (2.3-3.5); Glucose 136 mg/dL (74-106); Osmolality,Calculated 280 (275-295); Potassium 4.5 mMol/L (3.4-5.1); Sodium 136 mMol/L (136-145); eGFR > 60 See Note
[2024-07-23 17:19] LABS: Collection Type, Urine Clean Catch; Squamous Epithelial Cell,Urine 0 /hpf (0-5)
[2024-07-23 17:50] LABS: Bilirubin,Urine Negative (Negative); Blood,Urine Negative (Negative); Clarity,Urine Clear (Clear/Hazy); Color,Urine Yellow (Lt Yel-Yel); Glucose, Urine Negative (Negative); Hyaline Casts,Urine < 1 /hpf (0-1); Ketones,Urine Negative (Negative); Leukocyte Esterase,Urine Negative (Negative); Nitrite,Urine Negative (Negative); Protein,Urine Trace (Neg - Trace); RBC,Urine 4 /hpf (0-3); Specific Gravity,Urine 1.019 (1.001-1.035); Urobilinogen,Urine Negative mg/dL (0.0-1.0); WBC,Urine 2 /hpf (0-5)
[2024-07-23 17:55] LABS: Creatinine MALB Rnd Ur 133 mg/dL (30-125); Microalbumin Creat Ratio 10 mg/gCrea (<30); Microalbumin, Random Urine 13 mg/L (0-300)
== END | disposition home or self-care (01) ==
PROVIDERS: PCP Internal Medicine; Referring Provider Internal Medicine; Visit Provider Internal Medicine
DX: E11.9 Type 2 diabetes mellitus without complications (principal)
CPT/HCPCS: 36415; 80053; 81001; 82043; 82570

== ENCOUNTER 2024-08-05 14:07 | Outpatient (AMB) | payer MEDICAID, SELFPAY ==
[2024-08-05 14:22] VITALS: BP 169/86; PULSE 64; RESP 16; TEMP 36.4; O2SAT 97; BMI 27.5
--- NOTE | 2024-08-05 14:22 | ACNOTE_ITS ---
Vital Signs 08/05/24 14:22 Height 1.6 m Height Method Stated Weight 70.534 kg Weight Measurement Method Standing Scale BMI 27.5 BP 169/86 H Blood Pressure Source Automatic Cuff Blood Pressure Location Left Upper Arm Position Sitting Respiration 16 Pulse 64 Pulse Source Monitor Temp 97.5 F Temp Source Temporal Artery Scan Pulse Oximetry (%) 97 Oxygen Delivery Method Room Air Allergies/Meds Allergies & Medications Allergies No Known Allergies Allergy (Verified 08/05/24 14:23) Medication Reconciliation ciprofloxacin HCl 500 mg tablet (Cipro) 500 mg PO BID #14 tabs 07/17/24 [Rx Confirmed 08/05/24] docusate sodium 100 mg capsule 100 mg PO BID #40 caps 07/17/24 [Rx Confirmed 08/05/24] folic acid 1 mg tablet 1 mg PO BID #14 tabs 07/17/24 [Rx Confirmed 08/05/24] hydrocodone 7.5 mg-acetaminophen 325 mg tablet 1 tab PO Q6HR PRN Pain Scale 4-6 (Moderate #20 tabs 07/17/24 [Rx Confirmed 08/05/24] metformin 500 mg tablet,extended release 24 hr 500 mg PO BID 1 month #60 tabs 07/17/24 [Rx Confirmed 08/05/24] thiamine mononitrate (vit B1) 100 mg tablet 100 mg PO BID #14 tabs 07/17/24 [Rx Confirmed 08/05/24] atorvastatin 40 mg tablet 40 mg PO QHS #30 tabs 07/23/24 [Rx Confirmed 08/05/24] blood sugar diagnostic (Accutrend Glucose test strips) #50 ea 07/23/24 [Rx Confirmed 08/05/24] blood-glucose meter #1 ea 07/23/24 [Rx Confirmed 08/05/24] hydrochlorothiazide 12.5 mg capsule 12.5 mg PO QDAY 30 days #30 caps 07/23/24 [Rx Confirmed 08/05/24] lancets 28 gauge (Bullseye Mini Safety Lancets) #100 ea 07/23/24 [Rx Confirmed 08/05/24] losartan 50 mg tablet 50 mg PO QDAY #30 tabs 07/23/24 [Rx Confirmed 08/05/24] MA Intake Visit Data Collection New Patient or Established: Established Patient (seen at [facility] within 3 years) Seen by Clinical Staff ONLY (RN/MA): No Pain Present Currently: No Pain scale:: 0 Pain Scale Used: Zhang-Garcia/Numerical Load Manager Required: No PCP or OBGYN visit in last 3 months: Yes Hx Now: No Do You Feel Safe at Home: Yes Authorities Contacted: N/A Smoking Status Smoking Status: Never smoker Immunization / Flu Flu Vaccine in the Last 12 Months: No Flu Vaccine Exclusion Criteria: No Exclusion Criteria Past Medical History Past Medical History NEUROLOGIC: Negative Seizures CARDIAC: Positive Hypertension; Negative Congestive Heart Failure RESPIRATORY: Negative Chronic Obstructive Pulmonary Disease (COPD) GENITOURINARY: Negative Renal Disease ENDOCRINE: Negative Diabetes Mellitus Type 1 or Diabetes Mellitus Type 2 OTHER HISTORY: Negative Blood Transfusions, Blood Transfusion Reaction or Anesthesia Reactions Social History SMOKING STATUS: Smoking status: Never smoker ALCOHOL: Alcohol Intake: Current ALCOHOL FREQUENCY: Alcohol Intake Frequency: 3 or More Drinks per Day HOUSING: Housing: House LIVES WITH: Lives With: Children Patient Portal Lavinia Social History Living Situation History Housing: House Housing Other:: was living with a friend, after discharge he will go live with saman Jerez Tobacco History Smoking Status: Never smoker Alcohol History Alcohol Intake: Current Alcohol Intake Frequency: 3 or More Drinks per Day Domestic Abuse History Do You Feel Safe at Home: Yes Review of Systems Report any current symptoms Only answer those that you have currently: Past Medical History Past Medical History Have you ever been diagnosed with any of the following: Neurological Problems Seizures: No Cardiology Problems Congestive Heart Failure: No Hypertension: Yes Respiratory Problems Chronic Obstructive Pulmonary Disease (COPD): No Genital/Urinary Problems Renal Disease: No Endocrine Problems Diabetes Mellitus Type 1: No Diabetes Mellitus Type 2: No Other Problems Blood Transfusions: No Blood Transfusion Reaction: No Anesthesia Reactions: No History of Present Illness HPI Narrative Ken Rodarte is a 73-year-old male with newly diagnosed T2DM (A1c 7.8% on 07/2024), HTN (was not on any medications) who is here for follow-up after being admitted at [facility] for cholecystitis and underwent open cholecystectomy. During this time, patient was diagnosed with diabetes and discharged with antibiotic course for cholecystitis and started on new antihypertensive medications. Patient presented to [facility] on 07/23 and was started on lisinopril 40 mg daily and HCTZ 12.5 mg daily upon DC. In clinic, BP 128/84 but patient endorsed having a cough, therefore lisinopril switched to losartan. He was advised on washout period of 36-48 hours. As BG/A1c was elevated, glucose was controlled with insulin while admitted, and discharged with 500 mg metformin ER BID. He has been watching his diet, but unable to check blood sugars. 08/06: Presents with son who helped translate. States that patient no longer experiencing abdominal pain or any changes in bowel habits. Also states that cough has subsided. Son states that he and his sister help patient with medications at home. Recommended to obtain home blood pressure cuff for closer monitoring and to bring list of home medications during next visit. Patient states that he drinks 2-3 L of water/day. Review of Systems Review of Systems Systems Reviewed: All systems reviewed, normal except as documented Objective/Exam Narrative Physical exam: General: AOx3, no acute distress, able to speak full sentences HEENT: NC/AT, mucous membranes moist, bilateral sclera anicteric Cardiovascular: regular rate and rhythm, S1/S2 present, no murmurs appreciated Pulmonary: clear to auscultation bilaterally, no rales/rhonchi/wheezes Abdominal: soft, non-tender, non-distended, no rebound/guarding, normal bowel sounds present Musculoskeletal: normal ROM, no peripheral edema Skin: abdominal incision healing properly, maicol removed, warm and dry, intact, no rashes Neuro: CN II-XII intact, no focal deficits Assessment & Plan Diagnosis / Problem List (1) New onset type 2 diabetes mellitus: Status: Acute Assessment & Plan: A1c 7.8 during admission on 07/2024. New onset T2DM Plan: - Continue on 500 mg metformin ER BID - Continue current diet/lifestyle modifications with 150 mins of moderate exercise/week, when tolerable - [id number] ratio of 10, within normal limits in setting of T2DM - Bring home medications in 2 weeks to review (2) Hypertension associated with diabetes: Status: Acute Assessment & Plan: Patient's BP was elevated significantly during admission (SBP 180s-190s) Automated BP measured at 169/86 but manual blood pressure measured at 110/80. Plan: - Continue losartan 50 mg daily - Continue hydrochlorothiazide 12.5 mg daily - CMP showed increase in Cr from 0.6 to 1.2, and patient endorses drink 2-3 L of water per day - Will follow-up on chem panel in 2 weeks to assess renal function again while on lisinopril and HCTZ - Bring home medications in 2 weeks to review (3) ASCVD (arteriosclerotic cardiovascular disease): Status: Acute Assessment & Plan: ASCVD score was calculated to be 16.2%, indicating need for high-intensity statin Plan: - Continue atorvastatin 40 mg HS - CMP showed slight elevations in LFTs - Will follow-up on chem panel in 2 weeks to assess LFTs again while on statin (4) Acute cholecystitis: Status: Acute Assessment & Plan: recent admission for gangrenous cholecystitis s/p open cholecystectomy Plan: - Completed ciprofloxacin course and no longer needs to follow-up with general surgery Advanced Care Planning Advance care planning discussed with:: patient and child Office Procedures [facility] Level of Care Nursing/Assessment Patient Status: Established Patient Nursing Assessment/Reassessment: Medication Reconciliation, Update PMH in EMR and Vital Signs Coordination of Care: Complex Care and Chronic Disease 1-5, Consent,records obtained, informed consent, Education Simp Pt/Fam and Staff clarify orders Established Patient Charge Established Patient Point Assignment: 85 Established Patient Point Charge: EP Level 3 (80-115)
== END 2024-08-05 15:02 | disposition home or self-care (01) ==
LOC: HODAHC 14:07
PROVIDERS: Supervising Provider Internal Medicine
DX: E11.9 Type 2 diabetes mellitus without complications (principal); I15.2 Hypertension secondary to endocrine disorders; Z79.84 Long term (current) use of oral hypoglycemic drugs; I25.10 Atherosclerotic heart disease of native coronary artery without angina pectoris; K81.0 Acute cholecystitis; Z90.49 Acquired absence of other specified parts of digestive tract
CPT/HCPCS: 99213; G0463

== ENCOUNTER 2024-08-26 09:11 | Outpatient (AMB) | payer MEDICAID, SELFPAY ==
[2024-08-26 09:20] VITALS: BP 206/93; PULSE 64; RESP 18; TEMP 36.6; O2SAT 97; BMI 26.6
--- NOTE | 2024-08-26 09:20 | PD.RESCLINIC ---
Vital Signs 08/26/24 09:20 Height 1.6 m Height Method Stated Weight 68.266 kg Weight Measurement Method Standing Scale BMI 26.6 BP 206/93 H Blood Pressure Source Automatic Cuff Blood Pressure Location Right Upper Arm Position Sitting Respiration 18 Pulse 64 Pulse Source Monitor Temp 97.8 F Temp Source Temporal Artery Scan Pulse Oximetry (%) 97 Oxygen Delivery Method Room Air Allergies/Meds Allergies & Medications Allergies No Known Allergies Allergy (Verified 08/26/24 09:21) Medication Reconciliation ciprofloxacin HCl 500 mg tablet (Cipro) 500 mg PO BID #14 tabs 07/17/24 [Rx Confirmed 08/26/24] docusate sodium 100 mg capsule 100 mg PO BID #40 caps 07/17/24 [Rx Confirmed 08/26/24] folic acid 1 mg tablet 1 mg PO BID #14 tabs 07/17/24 [Rx Confirmed 08/26/24] hydrocodone 7.5 mg-acetaminophen 325 mg tablet 1 tab PO Q6HR PRN Pain Scale 4-6 (Moderate #20 tabs 07/17/24 [Rx Confirmed 08/26/24] thiamine mononitrate (vit B1) 100 mg tablet 100 mg PO BID #14 tabs 07/17/24 [Rx Confirmed 08/26/24] atorvastatin 40 mg tablet 40 mg PO QHS #30 tabs 07/23/24 [Rx Confirmed 08/26/24] blood sugar diagnostic (Accutrend Glucose test strips) #50 ea 07/23/24 [Rx Confirmed 08/26/24] blood-glucose meter #1 ea 07/23/24 [Rx Confirmed 08/26/24] metformin 500 mg tablet,extended release 24 hr 500 mg PO BID 1 month #60 tabs 08/07/24 [Rx Confirmed 08/26/24] amlodipine 5 mg tablet 5 mg PO HS Hypertension #30 tabs 08/26/24 [Rx] lancets 28 gauge (Bullseye Mini Safety Lancets) #100 ea 08/26/24 [Rx] losartan 100 mg tablet 100 mg PO QDAY Hypertension #30 tabs 08/26/24 [Rx] miscellaneous medical supply (Blood Pressure Cuff) #1 ea 08/26/24 [Rx] MA Intake Visit Data Collection New Patient or Established: Established Patient (seen at [facility] within 3 years) Seen by Clinical Staff ONLY (RN/MA): No Pain Present Currently: No Pain Scale Used: Zhang-Garcia/Numerical Seafood Specialist Required: No PCP or OBGYN visit in last 3 months: Yes Date of Last PCP or OBGYN visit: 08/05/24 Do You Feel Safe at Home: Yes Authorities Contacted: N/A Smoking Status Smoking Status: Never smoker Immunization / Flu Flu Vaccine in the Last 12 Months: Yes Flu Vaccine Exclusion Criteria: Already Received Past Medical History Past Medical History NEUROLOGIC: Negative Seizures CARDIAC: Positive Hypertension; Negative Congestive Heart Failure RESPIRATORY: Negative Chronic Obstructive Pulmonary Disease (COPD) GENITOURINARY: Negative Renal Disease ENDOCRINE: Negative Diabetes Mellitus Type 1 or Diabetes Mellitus Type 2 OTHER HISTORY: Negative Blood Transfusions, Blood Transfusion Reaction or Anesthesia Reactions Social History SMOKING STATUS: Smoking status: Never smoker ALCOHOL: Alcohol Intake: Current ALCOHOL FREQUENCY: Alcohol Intake Frequency: 3 or More Drinks per Day HOUSING: Housing: House LIVES WITH: Lives With: Children Patient Portal Questionaires PHQ-9 PHQ-2 Over the last 2 weeks, how often have you been bothered by any of the following problems? 1. Little interest or pleasure in doing things: not at all 2. Feeling down, depressed, or hopeless: not at all Total score: 0 Depression screen completed yes Social History Living Situation History Housing: House Housing Other:: was living with a friend, after discharge he will go live with saman Jerez Tobacco History Smoking Status: Never smoker Alcohol History Alcohol Intake: Current Alcohol Intake Frequency: 3 or More Drinks per Day Domestic Abuse History Do You Feel Safe at Home: Yes Review of Systems Report any current symptoms Only answer those that you have currently: Past Medical History Past Medical History Have you ever been diagnosed with any of the following: Neurological Problems Seizures: No Cardiology Problems Congestive Heart Failure: No Hypertension: Yes Respiratory Problems Chronic Obstructive Pulmonary Disease (COPD): No Genital/Urinary Problems Renal Disease: No Endocrine Problems Diabetes Mellitus Type 1: No Diabetes Mellitus Type 2: No Other Problems Blood Transfusions: No Blood Transfusion Reaction: No Anesthesia Reactions: No History of Present Illness HPI Narrative Patient is a 73 year old male with a past medical history of diabetes mellitus type 2 w/ a previous a1c of 7.8% and hypetension with a recent hospitilization for cholecytstectomy. During office visits patient's systolic blood pressure of 206 and denied any headache, acute blurry vision, denied chest pain, or shortness of breath. Patient denied any blood in the urine. Patient has continued to take losartan 50 mg once a day but has stopped taking hydrochlorothiazide. Given persistent elevated blood pressure losartan increased from 50 mg once daily to 100 mg once daily. Hydrochlorothiazide td/c. Add amlodipine 5 mg once daily. Please follow-up back within 1 week for blood pressure control. Plan for labs in October, mail out slip. Patient had consumed coffee prior to office visit. Diabetes mellitus type 2 patient stated his home glucose readings however between 100 and 130 after eating. Patient denied any diarrhea with metformin which was recently added. Discussed goals fasting blood glucose 80-1 30. Denied any hypoglycemic episodes. Denied frothy urine. Status post [place] cystectomy has been discharged from Dr. Metcalf. Objective/Exam Narrative Physical exam: Vitals: BP 206/93 General Appearance: Alert and Orientated x3, well-nourished male who is sitting on exam room Thorax/Lungs: Symmetrical with good expansion. Chest and back non-tender. Lungs resonant to percussion. Breath sounds vesicular without crackles, wheezes, or rhonchi Cardiovascular/Peripheral Vascular: No jugular venous distention noted. S1 and S2 heart sounds regular, no murmurs or extra heart sounds auscultated. No peripheral edema noted. Abdomen: Bowel sounds are active. No tenderness to deep or light palpation. Assessment & Plan Diagnosis / Problem List (1) New onset type 2 diabetes mellitus: Status: Acute Assessment & Plan: New onset of diabetes mellitus type 2 A1c 7.8 during admission on 07/2024. Patient stated glucose ranges from 120-130 during fasting reads and stays below 200 after meals. Pateint request lancets, 3 refills still noted. Patient denied any medication side effect from metformin such as diarrhea. Plan: - Continue on 500 mg metformin ER BID - Continue current diet/lifestyle modifications with 150 mins of moderate exercise/week, when tolerable - Rtgadlmnruxs-oh-djiomoiemg ratio of 10, within normal limits in setting of T2DM - Bring home medications in 2 weeks to review (2) Hypertension associated with diabetes: Status: Acute Assessment & Plan: Patient's BP was elevated significantly during admission (SBP 180s-190s) Automated BP measured at 169/86 but manual blood pressure measured at 110/80. Plan: - Continue losartan 100 mg once daily and amlodipine 5 mg HS. -blood pressure cuff - CMP showed increase in Cr from 0.6 to 1.2, and patient endorses drink 2-3 L of water per day - Continue hydrochlorothiazide 12.5 mg daily-->d/c 08/26/2024, patient stopped taking medication (3) ASCVD (arteriosclerotic cardiovascular disease): Status: Acute Assessment & Plan: ASCVD score was calculated to be 16.2%, indicating need for high-intensity statin Plan: - Continue atorvastatin 40 mg HS - CMP showed slight elevations in LFTs (4) Acute cholecystitis: Status: Resolved Assessment & Plan: -recent admission for gangrenous cholecystitis s/p open cholecystectomy -surgical scar noted in the upper right quadrant, clean and free from discharge or erythema. Mild tenderness reported. Plan: - Completed ciprofloxacin course and no longer needs to follow-up with general surgery -[place] removed, Dr. Metcalf discharged patient, no further intervention. Additional Assessment Internal Medicine Attending Note: Case discussed with and agree with note and management plan of Resident Physician as per Resident's Note above. Issues of concern for present visit are as follows: Follow-up visit. Patient's blood pressure markedly elevated in office with a systolic of 206. Denied any symptoms suggestive of any endorgan damage. Patient was not taking hydrochlorothiazide. We will increase his losartan dose and add amlodipine 5 mg daily. We will follow-up in 1 week to recheck blood pressure. Diabetes self-care reviewed including diet, exercise, footcare, eye care. Patient states home glucose readings fasting are between 100-130. Tolerating metformin. Giacomo Quiroz MD Advanced Care Planning Advance care planning discussed with:: patient and child Physician Billing Established Patient Established Patient: E/M Level 3-CPT 23049 Office Procedures [facility] Level of Care Nursing/Assessment Patient Status: Established Patient Nursing Assessment/Reassessment: BP Monitoring, Medication Reconciliation, Update PMH in EMR and Vital Signs Coordination of Care: Complex Care and Chronic Disease 1-5, Consent,records obtained, informed consent, Education Simp Pt/Fam, Lab and Imaging orders and Staff clarify orders Established Patient Charge Established Patient Point Assignment: 115 Established Patient Point Charge: Level 3 (80-115)
== END 2024-08-26 09:49 | disposition home or self-care (01) ==
LOC: HODAHC 09:11
DX: E11.9 Type 2 diabetes mellitus without complications (principal); I15.2 Hypertension secondary to endocrine disorders; I25.10 Atherosclerotic heart disease of native coronary artery without angina pectoris; Z90.49 Acquired absence of other specified parts of digestive tract
CPT/HCPCS: 99213; G0463

== ENCOUNTER 2024-09-02 09:10 | Outpatient (AMB) | payer MEDICAID, SELFPAY ==
[2024-09-02 09:17] VITALS: BP 169/90; PULSE 71; RESP 18; TEMP 36.8; O2SAT 96; BMI 26.4
--- NOTE | 2024-09-02 09:17 | ACNOTE_ITS ---
Vital Signs 09/02/24 09:17 Height 1.6 m Height Method Stated Weight 67.642 kg Weight Measurement Method Standing Scale BMI 26.4 BP 169/90 H Blood Pressure Source Automatic Cuff Blood Pressure Location Right Upper Arm Position Sitting Respiration 18 Pulse 71 Pulse Source Monitor Temp 98.3 F Temp Source Temporal Artery Scan Pulse Oximetry (%) 96 Oxygen Delivery Method Room Air Allergies/Meds Allergies & Medications Allergies No Known Allergies Allergy (Verified 09/02/24 09:18) Medication Reconciliation ciprofloxacin HCl 500 mg tablet (Cipro) 500 mg PO BID #14 tabs 07/17/24 [Rx Confirmed 09/02/24] docusate sodium 100 mg capsule 100 mg PO BID #40 caps 07/17/24 [Rx Confirmed 09/02/24] folic acid 1 mg tablet 1 mg PO BID #14 tabs 07/17/24 [Rx Confirmed 09/02/24] hydrocodone 7.5 mg-acetaminophen 325 mg tablet 1 tab PO Q6HR PRN Pain Scale 4-6 (Moderate #20 tabs 07/17/24 [Rx Confirmed 09/02/24] thiamine mononitrate (vit B1) 100 mg tablet 100 mg PO BID #14 tabs 07/17/24 [Rx Confirmed 09/02/24] atorvastatin 40 mg tablet 40 mg PO QHS #30 tabs 07/23/24 [Rx Confirmed 09/02/24] blood sugar diagnostic (Accutrend Glucose test strips) #50 ea 07/23/24 [Rx Confirmed 09/02/24] blood-glucose meter #1 ea 07/23/24 [Rx Confirmed 09/02/24] lancets 28 gauge (Bullseye Mini Safety Lancets) #100 ea 08/26/24 [Rx Confirmed 09/02/24] losartan 100 mg tablet 100 mg PO QDAY Hypertension #30 tabs 08/26/24 [Rx Confirmed 09/02/24] miscellaneous medical supply (Blood Pressure Cuff) #1 ea 08/26/24 [Rx Confirmed 09/02/24] amlodipine 10 mg tablet 10 mg PO QDAY 60 days #60 tabs 09/02/24 [Rx] JAMILAH Intake Visit Data Collection New Patient or Established: Established Patient (seen at [facility] within 3 years) Seen by Clinical Staff ONLY (RN/MA): No Pain Present Currently: No Pain scale:: 0 Pain Scale Used: Zhang-Garcia/Numerical It Trainer Required: No PCP or OBGYN visit in last 3 months: No Hx Now: No Do You Feel Safe at Home: Yes Authorities Contacted: N/A Smoking Status Smoking Status: Never smoker Immunization / Flu Flu Vaccine in the Last 12 Months: No Flu Vaccine Exclusion Criteria: No Exclusion Criteria Past Medical History Past Medical History NEUROLOGIC: Negative Seizures CARDIAC: Positive Hypertension; Negative Congestive Heart Failure RESPIRATORY: Negative Chronic Obstructive Pulmonary Disease (COPD) GENITOURINARY: Negative Renal Disease ENDOCRINE: Negative Diabetes Mellitus Type 1 or Diabetes Mellitus Type 2 OTHER HISTORY: Negative Blood Transfusions, Blood Transfusion Reaction or Anesthesia Reactions Social History SMOKING STATUS: Smoking status: Never smoker ALCOHOL: Alcohol Intake: Current ALCOHOL FREQUENCY: Alcohol Intake Frequency: 3 or More Drinks per Day HOUSING: Housing: House LIVES WITH: Lives With: Children Patient Portal Questionaires PHQ-9 PHQ-2 Over the last 2 weeks, how often have you been bothered by any of the following problems? 1. Little interest or pleasure in doing things: not at all Social History Living Situation History Housing: House Housing Other:: was living with a friend, after discharge he will go live with saman Jerez Tobacco History Smoking Status: Never smoker Alcohol History Alcohol Intake: Current Alcohol Intake Frequency: 3 or More Drinks per Day Domestic Abuse History Do You Feel Safe at Home: Yes Review of Systems Report any current symptoms Only answer those that you have currently: Past Medical History Past Medical History Have you ever been diagnosed with any of the following: Neurological Problems Seizures: No Cardiology Problems Congestive Heart Failure: No Hypertension: Yes Respiratory Problems Chronic Obstructive Pulmonary Disease (COPD): No Genital/Urinary Problems Renal Disease: No Endocrine Problems Diabetes Mellitus Type 1: No Diabetes Mellitus Type 2: No Other Problems Blood Transfusions: No Blood Transfusion Reaction: No Anesthesia Reactions: No History of Present Illness HPI Narrative Patient is a 73 year old male with a past medical history of diabetes mellitus type 2 w/ a previous a1c of 7.8% and hypertension with a recent hospitilization for cholecytstectomy. Patient is following patient's hypertensive urgency and previous office visit showing to be a systolic pressure of greater than 200 and started on losartan 100 mg once daily and amlodipine 5 mg at bedtime. Patient stated he has been taking medication consistently after being prescribed. Patient has denied any syncopal episodes or dizziness. Patient denied headache or chest pain. This office visit blood pressure of 169/90. Continue losartan 100 mg once daily and increase amlodipine to 10 mg at bedtime. Patient is complaining of generalized weakness, nasal congestion, dry cough and recent sick contact with his grandchildren. Likely upper respiratory tract infection. Patient will be sent with Tamiflu 75 mg twice daily for the next 5 days kidney function within normal limits. If symptoms worsen and last greater than 2 weeks, please return. Follow up in three months from now. Labs CMP,CBC, TSH, A1c, and Hepatitis panel. Review of Systems Review of Systems Narrative Review of Systems: General appearance: NO weight change, NO fatigue, NO weakness, NO fever, NO chills, NO night sweats, No cough Skin: NO rash, NO itching, NO sores, NO moles HEENT: NO Trauma, NO nausea, NO vomiting, NO visual changes, NO blurry vision, NO double vision, NO tinnitus, NO vertigo, NO ear discharge, NO rhinorrhea, NO stuffiness, NO sneezing, NO allergy, NO epistaxis. NO Hoarseness, NO sore throat, NO swollen neck. Cardiac: NO Palpitations, NO dyspnea on exertion, NO orthopnea, NO paroxysmal nocturnal dyspnea, NO edema Respiratory: NO Shortness of Breath, NO Wheezing, Dry cough Cough, NO Sputum, NO hemoptysis GI:NO appetite, NO nausea, NO vomiting, NO dysphagia, NO changes in bowel frequency, NO stool color, NO diarrhea, NO constipation, NO hemetemesis, NO hemorrhoids, NO melena, NO hematechezia, NO abdominal pain, NO jaundice Renal: NO frequency, NO hesitancy, NO urgency, NO hematuria, NO nocturia, NO incontinence MSK: NO muscle weakness, NO gout, NO arthritis, NO muscle stiffness Neuro: NO headaches, NO tremors, NO weakness, NO paralysis, NO seizures, NO loss of consciousness, NO numbness. Hem: NO anemia, NO easy bruising/bleeding, NO petechiae, NO purpura Endo: NO heat/cold intolerance, NO excessive sweating, NO polyuria, NO polydipsia, NO polyphagia, NO thyroid problems, NO diabetes Pysch: NO mood, NO anxiety, NO depression Objective/Exam Narrative Physical exam: General Appearance: Alert and Orientated x3, well-nourished male who is sitting on exam room Thorax/Lungs: Symmetrical with good expansion. Chest and back non-tender. Lungs resonant to percussion. Breath sounds vesicular without crackles, wheezes, or rhonchi Cardiovascular/Peripheral Vascular: No jugular venous distention noted. S1 and S2 heart sounds regular, no murmurs or extra heart sounds auscultated. No peripheral edema noted. Abdomen: Bowel sounds are active. No tenderness to deep or light palpation. Assessment & Plan Diagnosis / Problem List (1) URI (upper respiratory infection): Status: Acute Qualifiers: URI type: unspecified viral URI Qualified Code(s): J06.9 - Acute upper respiratory infection, unspecified Assessment & Plan: Patient complaining of recent sick contacts with grandchildren who all had URI. Complaining of general muscle aches, dry cough and nasal congestion. Plan: -Tamiflu 75 mg BID for next 5 days -Follow up if symptoms do not improve (2) Hypertension associated with diabetes: Status: Acute Assessment & Plan: Improved sytolic blood pressure reading during office visit with BP reading of 169/90 which is improved compared to last week of 206/93. Patient denied any headaches or syncope given recent increase is dosage. Amlodipine added last week, at 5 mg-->increase to 10 mg HS. Advise on side effects of lower pedal edema. Plan: - Continue losartan 100 mg once daily and amlodipine 10 mg HS. - CMP showed increase in Cr from 0.6 to 1.2, and patient endorses drink 2-3 L of water per day (3) New onset type 2 diabetes mellitus: Status: Acute Assessment & Plan: New onset of diabetes mellitus type 2 A1c 7.8 during admission on 07/2024. Patient stated glucose ranges from 120-130 during fasting reads and stays below 200 after meals. Pateint request lancets, 3 refills still noted. Patient denied any medication side effect from metformin such as diarrhea. Plan: - Continue on 500 mg metformin ER BID - Continue current diet/lifestyle modifications with 150 mins of moderate exerci se/week, when tolerable - Glwdtwwiynaz-hx-oeqezyacaw ratio of 10, within normal limits in setting of T2DM (4) ASCVD (arteriosclerotic cardiovascular disease): Status: Acute Assessment & Plan: ASCVD score was calculated to be 16.2%, indicating need for high-intensity statin Plan: - Continue atorvastatin 40 mg HS - CMP showed slight elevations in LFTs (5) Acute cholecystitis: Status: Resolved Assessment & Plan: -recent admission for gangrenous cholecystitis s/p open cholecystectomy -surgical scar noted in the upper right quadrant, clean and free from discharge or erythema. Mild tenderness reported. Plan: - Completed ciprofloxacin course and no longer needs to follow-up with general surgery -[place] removed, Dr. Metcalf discharged patient, no further intervention. (6) Transaminitis: Status: Acute Assessment & Plan: Mild Transaminitis noted on previous labs from hospital admission. Patient does have a past medical history of alcohol use but not heavy when he was younger vs secondary to choloecytitis on previous hospital admission vs Hepatitis vs Atorvastatin use Plan: Hepatitis panel continue to monitor Plan Labs for October: CMP, CBC, A1c, Hepatitis panel, Tsh - The patient's plan was discussed with attending Dr. Gabriella Collins MD PGY1 Internal Medicine Additional Assessment Internal Medicine Attending Note: Case discussed with and agree with note and management plan of Resident Physician as per Resident's Note above. Issues of concern for present visit are as follows: Follow-up visit. Blood pressure lower than prior visit at 169/90, but still well above goal. We will increase amlodipine to 10 mg. Will likely need additional agent. Complaining of URI symptoms with cough, aches, weakness, congestion. Known sick contact with grandchildren. Symptoms starting within the last 2 days. We will empirically treat with Tamiflu. Diabetes self-care reviewed including diet, exercise, footcare, eye care. Lifestyle modifications reviewed with patient. Plan follow-up labs in October. Giacomo Quiroz MD Advanced Care Planning Advance care planning discussed with:: patient and child Physician Billing Established Patient Established Patient: E/M Level 3-CPT 58696 Office Procedures [facility] Level of Care Nursing/Assessment Patient Status: Established Patient Nursing Assessment/Reassessment: Medication Reconciliation, Update PMH in EMR and Vital Signs Coordination of Care: Complex Care and Chronic Disease 1-5, Consent,records obtained, informed consent, Education Simp Pt/Fam and Staff clarify orders Established Patient Charge Established Patient Point Assignment: 85 Established Patient Point Charge: EP Level 3 (80-115)
== END 2024-09-02 09:51 | disposition home or self-care (01) ==
LOC: HODAHC 09:10
DX: J06.9 Acute upper respiratory infection, unspecified (principal); I15.2 Hypertension secondary to endocrine disorders; E11.9 Type 2 diabetes mellitus without complications; I25.10 Atherosclerotic heart disease of native coronary artery without angina pectoris; Z90.49 Acquired absence of other specified parts of digestive tract; R74.01 Elevation of levels of liver transaminase levels
CPT/HCPCS: 99213; G0463

== ENCOUNTER 2024-12-04 14:19 | Outpatient (AMB) | payer MEDICAID, SELFPAY ==
[2024-12-04 15:08] VITALS: BP 146/66; PULSE 72; RESP 18; TEMP 37; O2SAT 97; BMI 26.2
--- NOTE | 2024-12-04 15:08 | PD.RESCLINIC ---
Vital Signs 12/04/24 15:08 Height 1.6 m Height Method Stated Weight 67.302 kg Weight Measurement Method Standing Scale BMI 26.2 BP 146/66 H Blood Pressure Source Automatic Cuff Blood Pressure Location Right Upper Arm Position Sitting Respiration 18 Pulse 72 Pulse Source Monitor Temp 98.6 F Temp Source Temporal Artery Scan Pulse Oximetry (%) 97 Oxygen Delivery Method Room Air Allergies/Meds Allergies & Medications Allergies No Known Allergies Allergy (Verified 12/04/24 15:09) Medication Reconciliation ciprofloxacin HCl 500 mg tablet (Cipro) 500 mg PO BID #14 tabs 07/17/24 [Rx Confirmed 12/04/24] docusate sodium 100 mg capsule 100 mg PO BID #40 caps 07/17/24 [Rx Confirmed 12/04/24] folic acid 1 mg tablet 1 mg PO BID #14 tabs 07/17/24 [Rx Confirmed 12/04/24] hydrocodone 7.5 mg-acetaminophen 325 mg tablet 1 tab PO Q6HR PRN Pain Scale 4-6 (Moderate #20 tabs 07/17/24 [Rx Confirmed 12/04/24] thiamine mononitrate (vit B1) 100 mg tablet 100 mg PO BID #14 tabs 07/17/24 [Rx Confirmed 12/04/24] atorvastatin 40 mg tablet 40 mg PO QHS #30 tabs 07/23/24 [Rx Confirmed 12/04/24] blood sugar diagnostic (Accutrend Glucose test strips) #50 ea 07/23/24 [Rx Confirmed 12/04/24] blood-glucose meter #1 ea 07/23/24 [Rx Confirmed 12/04/24] lancets 28 gauge (Bullseye Mini Safety Lancets) #100 ea 08/26/24 [Rx Confirmed 12/04/24] losartan 100 mg tablet 100 mg PO QDAY Hypertension #30 tabs 08/26/24 [Rx Confirmed 12/04/24] miscellaneous medical supply (Blood Pressure Cuff) #1 ea 08/26/24 [Rx Confirmed 12/04/24] MA Intake Visit Data Collection New Patient or Established: Established Patient (seen at [facility] within 3 years) Seen by Clinical Staff ONLY (RN/MA): No Pain Present Currently: No Pain scale:: 0 Pain Scale Used: Zhang-Garcia/Numerical Php Lamp Developer Required: No PCP or OBGYN visit in last 3 months: No Hx Now: No Smoking Status Smoking Status: Never smoker Immunization / Flu Flu Vaccine in the Last 12 Months: No Flu Vaccine Exclusion Criteria: No Exclusion Criteria Past Medical History Past Medical History NEUROLOGIC: Negative Seizures CARDIAC: Positive Hypertension; Negative Congestive Heart Failure RESPIRATORY: Negative Chronic Obstructive Pulmonary Disease (COPD) GENITOURINARY: Negative Renal Disease ENDOCRINE: Negative Diabetes Mellitus Type 1 or Diabetes Mellitus Type 2 OTHER HISTORY: Negative Blood Transfusions, Blood Transfusion Reaction or Anesthesia Reactions Social History SMOKING STATUS: Smoking status: Never smoker ALCOHOL: Alcohol Intake: Current ALCOHOL FREQUENCY: Alcohol Intake Frequency: 3 or More Drinks per Day HOUSING: Housing: House LIVES WITH: Lives With: Children Patient Portal Questionaires PHQ-9 PHQ-2 Over the last 2 weeks, how often have you been bothered by any of the following problems? 1. Little interest or pleasure in doing things: not at all Social History Living Situation History Housing: House Housing Other:: was living with a friend, after discharge he will go live with saman Jerez Tobacco History Smoking Status: Never smoker Alcohol History Alcohol Intake: Current Alcohol Intake Frequency: 3 or More Drinks per Day Review of Systems Report any current symptoms Only answer those that you have currently: Past Medical History Past Medical History Have you ever been diagnosed with any of the following: Neurological Problems Seizures: No Cardiology Problems Congestive Heart Failure: No Hypertension: Yes Respiratory Problems Chronic Obstructive Pulmonary Disease (COPD): No Genital/Urinary Problems Renal Disease: No Endocrine Problems Diabetes Mellitus Type 1: No Diabetes Mellitus Type 2: No Other Problems Blood Transfusions: No Blood Transfusion Reaction: No Anesthesia Reactions: No History of Present Illness HPI Narrative Patient is a 73 year old male with a past medical history of diabetes mellitus type 2 non insulin dependent A1c improved A1 5.8 (11/2024) and hypertension with a recent hospitilization for cholecytstectomy. 08/2024: Patient is following patient's hypertensive urgency and previous office visit showing to be a systolic pressure of greater than 200 and started on losartan 100 mg once daily and amlodipine 5 mg at bedtime. Patient stated he has been taking medication consistently after being prescribed. Patient has denied any syncopal episodes or dizziness. Patient denied headache or chest pain. This office visit blood pressure of 169/90. Continue losartan 100 mg once daily and increase amlodipine 5 mg to 10 mg at bedtime. Patient is complaining of generalized weakness, nasal congestion, dry cough and recent sick contact with his grandchildren. Likely upper respiratory tract infection. Patient will be sent with Tamiflu 75 mg twice daily for the next 5 days kidney function within normal limits. If symptoms worsen and last greater than 2 weeks, please return. Follow up in three months from now. Labs CMP,CBC, TSH, A1c, and Hepatitis panel. 12/04/2024: Patient is returning to the office for his 3 month follow. Patient blood pressure at home between 130-140s. Current systolic blood pressure 146. Paitnet deneid headaches or syncope. Continue Losaratan 100 mg once daily and amlodipine 10 mg HS. Continue patient's Atorvastatin 40 mg HS. Repeat Lipid Panel (11/24/2024): Cholesterol 130, Triglycerides 107, HDL 34, LDL 76. Goal LDL <70. Continue Atorvastatin 40 mg HS. Given previous hospital admission that noted transiminitis, hepatitis panel NEGATIVE. AST and ALT within normal limits on repeat labs. Repeat A1c 5.8 (11/2024), continue Metformin 500 mg BID. Prechart review, previous Abdomen/Pelvis CT noted significant inflammatory chagnes in the right colon. Patient is declining colonsocpy. Given findings recommended colonscopy. [facility]EXA , PSA, and Colonoscopy referral vs ColoGuard. Review of Systems Review of Systems Narrative Review of Systems: General appearance: NO weight change, NO fatigue, NO weakness, NO fever, NO chills, NO night sweats, No cough Skin: NO rash, NO itching, NO sores, NO moles HEENT: NO Trauma, NO nausea, NO vomiting, NO visual changes, NO blurry vision, NO double vision, NO tinnitus, NO vertigo, NO ear discharge, NO rhinorrhea, NO stuffiness, NO sneezing, NO allergy, NO epistaxis. NO Hoarseness, NO sore throat, NO swollen neck. Cardiac: NO Palpitations, NO dyspnea on exertion, NO orthopnea, NO paroxysmal nocturnal dyspnea, NO edema Respiratory: NO Shortness of Breath, NO Wheezing, NO Cough, NO Sputum, NO hemoptysis GI:NO appetite, NO nausea, NO vomiting, NO dysphagia, NO changes in bowel frequency, NO stool color, NO diarrhea, NO constipation, NO hemetemesis, NO hemorrhoids, NO melena, NO hematechezia, NO abdominal pain, NO jaundice Renal: NO frequency, NO hesitancy, NO urgency, NO hematuria, NO nocturia, NO incontinence MSK: NO muscle weakness, NO gout, NO arthritis, NO muscle stiffness Neuro: NO headaches, NO tremors, NO weakness, NO paralysis, NO seizures, NO loss of consciousness, NO numbness. Hem: NO anemia, NO easy bruising/bleeding, NO petechiae, NO purpura Endo: NO heat/cold intolerance, NO excessive sweating, NO polyuria, NO polydipsia, NO polyphagia, NO thyroid problems, NO diabetes Pysch: NO mood, NO anxiety, NO depression Objective/Exam Narrative Physical exam: General Appearance: Alert and Orientated x3, well-nourished male who is sitting on exam room Thorax/Lungs: Symmetrical with good expansion. Chest and back non-tender. Lungs resonant to percussion. Breath sounds vesicular without crackles, wheezes, or rhonchi Cardiovascular/Peripheral Vascular: No jugular venous distention noted. S1 and S2 heart sounds regular, no murmurs or extra heart sounds auscultated. No peripheral edema noted. Abdomen: Bowel sounds are active. No tenderness to deep or light palpation. Assessment & Plan Diagnosis / Problem List (1) Hypertension associated with diabetes: Status: Acute Assessment & Plan: Improved sytolic blood pressure reading during office visit with BP reading of 169/90 which is improved compared to last week of 206/93. Patient denied any headaches or syncope given recent increase is dosage. Amlodipine added last week, at 5 mg-->increase to 10 mg HS. Advise on side effects of lower pedal edema. Plan: - Continue losartan 100 mg once daily and amlodipine 10 mg HS. - CMP showed increase in Cr from 0.6 to 1.2, and patient endorses drink 2-3 L of water per day (2) Diabetes mellitus type 2, controlled, without complications: Status: Acute Assessment & Plan: Previous hospital admission noted to have new diagnosis of diabetes mellitus type 2, non-insulin dependent with A1c 7.8 (07/2024)--->now improved with A1c of 5.8 (11/2024). Continue Metformin ER 500 mg PO BID. Plan: -Continue Metformin ER 500 mg PO BID (3) ASCVD (arteriosclerotic cardiovascular disease): Status: Acute Assessment & Plan: ASCVD score was calculated to be 16.2%, indicating need for high-intensity statins-->ASCVD 17.4% of cardiovascular even in the next 10 years if risk factors were optimal. Conitnue Atorvastatin 40 mg HS Lipid Panel (11/2024): Cholesterol 130, Triglycerides 107, HDL 34, and LDL 76. Plan: - Continue atorvastatin 40 mg HS. (4) Transaminitis: Status: Acute Assessment & Plan: Mild Transaminitis noted on previous labs from hospital admission, repeat CMP panel (11/2024), AST and ALT within normal limits. AST and ALT elevation likely secondary to cholecystitis during previous hospital admission. Hepatitis Panel (11/2024): NEGATIVE. CMP (11/2024): AST 23 ALT 35 Heptaitis Panel NEGATIVE Plan: Continue to monitor Plan - The patient's plan was discussed with attending Dr. Gabriella Collins MD PGY2 Internal Medicine Advanced Care Planning Advance care planning discussed with:: patient and child Office Procedures [facility] Level of Care Nursing/Assessment Patient Status: Established Patient Nursing Assessment/Reassessment: Medication Reconciliation, Update PMH in EMR and Vital Signs Coordination of Care: Complex Care and Chronic Disease 1-5, Consent,records obtained, informed consent, Education Simp Pt/Fam and Staff clarify orders Established Patient Charge Established Patient Point Assignment: 85 Established Patient Point Charge: EP Level 3 (80-115)
== END 2024-12-04 15:40 | disposition home or self-care (01) ==
LOC: HODAHC 14:19
PROVIDERS: Supervising Provider Internal Medicine
DX: I15.2 Hypertension secondary to endocrine disorders (principal); E11.9 Type 2 diabetes mellitus without complications; Z79.84 Long term (current) use of oral hypoglycemic drugs; I25.10 Atherosclerotic heart disease of native coronary artery without angina pectoris; R74.01 Elevation of levels of liver transaminase levels
CPT/HCPCS: 99213; G0463

== ENCOUNTER 2025-04-28 13:56 | Outpatient (AMB) | payer MEDICAID, SELFPAY ==
--- NOTE | 2025-04-28 14:09 | ACNOTE_ITS ---
Vital Signs 04/28/25 14:10 04/28/25 14:58 Height 1.6 m Height Method Stated Weight 69.456 kg Weight Measurement Method Standing Scale BMI 27.1 BP 194/71 H 185/83 H Blood Pressure Source Automatic Cuff Automatic Cuff Blood Pressure Location Right Upper Arm Left Upper Arm Position Sitting Sitting Respiration 18 Pulse 63 Pulse Source Monitor Temp 97.2 F Temp Source Temporal Artery Scan Pulse Oximetry (%) 98 Oxygen Delivery Method Room Air Allergies/Meds Allergies & Medications Allergies No Known Allergies Allergy (Verified 04/28/25 14:11) Medication Reconciliation ciprofloxacin HCl 500 mg tablet (Cipro) 500 mg PO BID #14 tabs 07/17/24 [Rx Confirmed 04/28/25] docusate sodium 100 mg capsule 100 mg PO BID #40 caps 07/17/24 [Rx Confirmed 04/28/25] folic acid 1 mg tablet 1 mg PO BID #14 tabs 07/17/24 [Rx Confirmed 04/28/25] hydrocodone 7.5 mg-acetaminophen 325 mg tablet 1 tab PO Q6HR PRN Pain Scale 4-6 (Moderate #20 tabs 07/17/24 [Rx Confirmed 04/28/25] thiamine mononitrate (vit B1) 100 mg tablet 100 mg PO BID #14 tabs 07/17/24 [Rx Confirmed 04/28/25] blood sugar diagnostic (Accutrend Glucose test strips) #50 ea 07/23/24 [Rx Confirmed 04/28/25] blood-glucose meter #1 ea 07/23/24 [Rx Confirmed 04/28/25] lancets 28 gauge (Bullseye Mini Safety Lancets) #100 ea 08/26/24 [Rx Confirmed 04/28/25] miscellaneous medical supply (Blood Pressure Cuff) #1 ea 08/26/24 [Rx Confirmed 04/28/25] atorvastatin 40 mg tablet 40 mg PO QHS hyperlipidemia #30 tabs 04/16/25 [Rx Confirmed 04/28/25] adjuvant AS01B (PF)vial 1 of 2 (Shingrix Adjuvant Component (PF) intramuscular suspension) 0.5 ml IM .x1 Shingles Vaccine #0.5 mL 04/28/25 [Rx] diphth,pertus(acell),tetanus 2.5 Lf unit-8 mcg-5 Lf/0.5mL IM syringe (Boostrix Tdap) 0.5 ml IM .x1 Tdap booster #5 mL 04/28/25 [Rx] losartan 100 mg-hydrochlorothiazide 12.5 mg tablet 1 tab PO QDAY Hypertension, I10 #30 tabs 04/28/25 [Rx] metformin 500 mg tablet 500 mg PO BID Diabetes 30 days #60 tabs 04/28/25 [Rx] JAMILAH Intake Visit Data Collection New Patient or Established: Established Patient (seen at [facility] within 3 years) Seen by Clinical Staff ONLY (RN/MA): No Pain Present Currently: No Pain scale:: 0 Pain Scale Used: Zhang-Garcia/Numerical Gear And Spline Grinder Required: Yes PCP or OBGYN visit in last 3 months: Yes Hx Now: No Do You Feel Safe at Home: Yes Authorities Contacted: N/A Smoking Status Smoking Status: Never smoker Immunization / Flu Flu Vaccine in the Last 12 Months: No Flu Vaccine Exclusion Criteria: Refused by Patient Past Medical History Past Medical History NEUROLOGIC: Negative Seizures CARDIAC: Positive Hypertension; Negative Congestive Heart Failure RESPIRATORY: Negative Chronic Obstructive Pulmonary Disease (COPD) GENITOURINARY: Negative Renal Disease ENDOCRINE: Negative Diabetes Mellitus Type 1 or Diabetes Mellitus Type 2 OTHER HISTORY: Negative Blood Transfusions, Blood Transfusion Reaction or Anesthesia Reactions Social History SMOKING STATUS: Smoking status: Never smoker ALCOHOL: Alcohol Intake: Current ALCOHOL FREQUENCY: Alcohol Intake Frequency: 3 or More Drinks per Day HOUSING: Housing: House LIVES WITH: Lives With: Children Patient Portal Questionaires PHQ-9 PHQ-2 Over the last 2 weeks, how often have you been bothered by any of the following problems? 1. Little interest or pleasure in doing things: not at all Social History Living Situation History Housing: House Housing Other:: was living with a friend, after discharge he will go live with saman Jerez Tobacco History Smoking Status: Never smoker Alcohol History Alcohol Intake: Current Alcohol Intake Frequency: 3 or More Drinks per Day Domestic Abuse History Do You Feel Safe at Home: Yes Review of Systems Report any current symptoms Only answer those that you have currently: Past Medical History Past Medical History Have you ever been diagnosed with any of the following: Neurological Problems Seizures: No Cardiology Problems Congestive Heart Failure: No Hypertension: Yes Respiratory Problems Chronic Obstructive Pulmonary Disease (COPD): No Genital/Urinary Problems Renal Disease: No Endocrine Problems Diabetes Mellitus Type 1: No Diabetes Mellitus Type 2: No Other Problems Blood Transfusions: No Blood Transfusion Reaction: No Anesthesia Reactions: No History of Present Illness HPI Narrative Patient is a 73 year old male with a past medical history of diabetes mellitus type 2 non insulin dependent A1c improved A1 5.8 (11/2024), HLD, and hypertension with a recent cholecytstectomy (07/17/2024). 12/04/2024: Patient is returning to the office for his 3 month follow. Patient blood pressure at home between 130-140s. Current systolic blood pressure 146. Paitnet deneid headaches or syncope. Continue Losaratan 100 mg once daily and amlodipine 10 mg HS. Continue patient's Atorvastatin 40 mg HS. Repeat Lipid Panel (11/24/2024): Cholesterol 130, Triglycerides 107, HDL 34, LDL 76. Goal LDL <70. Continue Atorvastatin 40 mg HS. Given previous hospital admission that noted transiminitis, hepatitis panel NEGATIVE. AST and ALT within normal limits on repeat labs. Repeat A1c 5.8 (11/2024), continue Metformin 500 mg BID. Per chart review, previous Abdomen/Pelvis CT noted significant inflammatory chagnes in the right colon. Patient is declining colonoscopy. Given findings recommended colonoscopy. Patient asked to return for health maintenance follow up including DEXA , PSA, and Colonoscopy referral vs ColoGuard. 04/28/2025: Patient returning for annual physical exam. Patient refused colonoscopy and Cologuard/FIT test. Refused PSA. Consented Tdap booster and Shingles (05/14), ordered to pharmacy. Systolic BP 194 and Repeat in office systolic BP 185. Denied headache, blurry vision, or nausea. Patient had stopped taking his metformin as he did not realize he had diabetes. Metformin refilled. STOP Losartan 100 mg-->START Losartan 100-HCTZ 12.5 mg once daily. [facility] Labs. Review of Systems Review of Systems Narrative Review of Systems: General appearance: NO weight change, NO fatigue, NO weakness, NO fever, NO chills, NO night sweats, No cough Skin: NO rash, NO itching, NO sores, NO moles HEENT: NO Trauma, NO nausea, NO vomiting, NO visual changes, NO blurry vision, NO double vision, NO tinnitus, NO vertigo, NO ear discharge, NO rhinorrhea, NO stuffiness, NO sneezing, NO allergy, NO epistaxis. NO Hoarseness, NO sore throat, NO swollen neck. Cardiac: NO Palpitations, NO dyspnea on exertion, NO orthopnea, NO paroxysmal nocturnal dyspnea, NO edema Respiratory: NO Shortness of Breath, NO Wheezing, NO Cough, NO Sputum, NO hemoptysis GI:NO appetite, NO nausea, NO vomiting, NO dysphagia, NO changes in bowel frequency, NO stool color, NO diarrhea, NO constipation, NO hemetemesis, NO hemo rrhoids, NO melena, NO hematechezia, NO abdominal pain, NO jaundice Renal: NO frequency, NO hesitancy, NO urgency, NO hematuria, NO nocturia, NO incontinence MSK: NO muscle weakness, NO gout, NO arthritis, NO muscle stiffness Neuro: NO headaches, NO tremors, NO weakness, NO paralysis, NO seizures, NO loss of consciousness, NO numbness. Hem: NO anemia, NO easy bruising/bleeding, NO petechiae, NO purpura Endo: NO heat/cold intolerance, NO excessive sweating, NO polyuria, NO polydipsia, NO polyphagia, NO thyroid problems, NO diabetes Pysch: NO mood, NO anxiety, NO depression Objective/Exam Narrative Physical exam: Vitals: 194/74-->Repeat 185/83 General Appearance: Alert and Orientated x3, well-nourished (sex) who is sitting on exam room Thorax/Lungs: Symmetrical with good expansion. Chest and back non-tender. Lungs resonant to percussion. Breath sounds vesicular without crackles, wheezes, or rhonchi Cardiovascular/Peripheral Vascular: No jugular venous distention noted. S1 and S2 heart sounds regular, no murmurs or extra heart sounds auscultated. No peripheral edema noted. Abdomen: Bowel sounds are active. No tenderness to deep or light palpation. Diabetic foot Exam: bilateral hair loss, thickened nails, no lesions or open wounds, pedal pulses 3+, hammertoe noted. Assessment & Plan Diagnosis / Problem List (1) Hypertension associated with diabetes: Status: Acute Assessment & Plan: Worsening hypertension despite Losartan with blood pressure of 185/83. Denied headache or blurry vision. Denied syncope or confusion. Plan: -START Losartan 100 mg once daily-HCTZ 12.5 mg once daily -Follow up in 2 weeks. (2) Diabetes mellitus type 2, controlled, without complications: Status: Acute Assessment & Plan: Previous hospital admission noted to have new diagnosis of diabetes mellitus type 2, non-insulin dependent with A1c 7.8 (07/2024)--->now improved with A1c of 5.8 (11/2024). Continue Metformin ER 500 mg PO BID. Plan: -Continue Metformin ER 500 mg PO BID -Refilled (3) ASCVD (arteriosclerotic cardiovascular disease): Status: Acute Assessment & Plan: ASCVD score was calculated to be 16.2%, indicating need for high-intensity statins-->ASCVD 17.4% of cardiovascular even in the next 10 years if risk factors were optimal. Conitnue Atorvastatin 40 mg HS Lipid Panel (11/2024): Cholesterol 130, Triglycerides 107, HDL 34, and LDL 76. Plan: - Continue atorvastatin 40 mg HS. -Follow up on labs (4) Transaminitis: Status: Acute Assessment & Plan: Mild Transaminitis noted on previous labs from hospital admission, repeat CMP panel (11/2024), AST and ALT within normal limits. AST and ALT elevation likely secondary to cholecystitis during previous hospital admission. Hepatitis Panel (11/2024): NEGATIVE. CMP (11/2024): AST 23 ALT 35 Heptaitis Panel NEGATIVE Plan: Labs, CMP continue Atorvastatin until repeat labs. (5) Annual physical exam: Status: Acute Assessment & Plan: Shingles and Tdap booster sent to pharmacy Patient refused Colonoscopy (despite history of colitis on CT AB), DEXA, and PSA. Labs ordered. Plan - The patient's plan was discussed with attending Dr. Asia Collins MD PGY2 Internal Medicine Orders: Orders Vitamin D 25 Hydroxy Total Today E11.9 - Type 2 diabetes mellitus without complications, I10 - Essential (primary) hypertension, Z00.00 - Encounter for general adult medical examination without abnormal findings Albumin/Creatinine Ratio Urine Today E11.9 - Type 2 diabetes mellitus without complications, I10 - Essential (primary) hypertension, Z00.00 - Encounter for general adult medical examination without abnormal findings CBC Today E11.9 - Type 2 diabetes mellitus without complications, I10 - Essential (primary) hypertension, Z00.00 - Encounter for general adult medical examination without abnormal findings Comprehensive Metabolic Panel Today E11.9 - Type 2 diabetes mellitus without complications, I10 - Essential (primary) hypertension, Z00.00 - Encounter for general adult medical examination without abnormal findings Glycohemoglobin w (eAG) Today E11.9 - Type 2 diabetes mellitus without complications, I10 - Essential (primary) hypertension, Z00.00 - Encounter for general adult medical examination without abnormal findings Lipid Panel Today E11.9 - Type 2 diabetes mellitus without complications, I10 - Essential (primary) hypertension, Z00.00 - Encounter for general adult medical examination without abnormal findings Advanced Care Planning Advance care planning discussed with:: patient and child Office Procedures [facility] Level of Care Nursing/Assessment Patient Status: Established Patient Nursing Assessment/Reassessment: Medication Reconciliation, Update PMH in EMR and Vital Signs Coordination of Care: Complex Care and Chronic Disease 1-5, Complex Care/Chronic Disease 5 or more, Consent,records obtained, informed consent, Lab and Imaging orders, Results/Orders obtained and Staff clarify orders Established Patient Charge Established Patient Point Assignment: 125 Established Patient Point Charge: Level 4 (120-155)
[2025-04-28 14:10] VITALS: BP 194/71; PULSE 63; RESP 18; TEMP 36.2; O2SAT 98; BMI 27.1
[2025-04-28 14:58] VITALS: BP 185/83
== END 2025-04-28 15:06 | disposition home or self-care (01) ==
LOC: HODAHC 13:56
PROVIDERS: Supervising Provider Internal Medicine
DX: Z00.00 Encounter for general adult medical examination without abnormal findings (principal); I15.2 Hypertension secondary to endocrine disorders; E11.9 Type 2 diabetes mellitus without complications; Z79.84 Long term (current) use of oral hypoglycemic drugs; I25.10 Atherosclerotic heart disease of native coronary artery without angina pectoris; R74.01 Elevation of levels of liver transaminase levels
CPT/HCPCS: 99214; G0463